=== PATIENT | female | born 1945 | race Caucasian/White ===

== ENCOUNTER 2019-01-03 13:33 | Inpatient (IN) | payer MEDICARE, OTHER ==
[~2019-01-03] VITALS: Ht 165.1 cm; Wt 117.9 kg
[~2019-01-03 13:33] MED LIST: AMIODARONE HCL200 MG ORAL; CLINDAMYCIN HC150 MG ORAL; CLOTRIMAZOLE15 GM TOPIC; INDOCIN25 MG ORAL; LIVALO2 MG PO; METOPROLOL SUCC50 MG ORAL; NORCO 5-325 TA1 EACH ORAL; OMEPRAZOLE40 M1 ORAL; SENSIPAR30 MG ORAL; TORSEMIDE20 MG ORAL; TRAMADOL HCL50 MG ORAL; TRULICITY1.5 MG/0.5 SQ; [UNRECOGNIZED DRUG - OTHER] PO
[2019-01-03 13:34] VITALS: BP 135/71
--- NOTE | 2019-01-03 13:34 | NUR ---
ED Nurse Note: Pt brought in by ambulance due to left side CP that radiates to her back started 1245 noon. Per daughter, they were having lunch when it started. Denies SOB or dizziness. Pt is AAO x4, follows commands. Noted Pleurx with dressing on right lateral abdomen.
--- NOTE | 2019-01-03 13:35 | NUR ---
ED Nurse Note: EMS gave NTG 1.2 spray en route.
[2019-01-03] MEDS ORDERED: Morphine Sulfate 4mg/ml Inj (IV USE ONLY) IVP ONE ×2 (14:00→15:30)
--- NOTE | 2019-01-03 14:08 | NUR ---
ED Nurse Note: Blood collected and sent.
--- NOTE | 2019-01-03 14:33 | NUR ---
ED Nurse Note: Water provided to patient. Dr Noelle pimentel.
[2019-01-03 14:38] LABS: BASOPHILS % (AUTO) 0.7 % (0.0-2.0); EOSINOPHILS % (AUTO) 1.1 % (0.0-3.0); HEMATOCRIT 35.6 % (37.0-47.0); HEMOGLOBIN 11.3 G/DL (12.0-16.0); LYMPHOCYTES % (AUTO) 18.5 % (20.0-45.0); MEAN CORPUSCULAR VOLUME 92 FL (80-99); MONOCYTES % (AUTO) 6.2 % (1.0-10.0); NEUTROPHILS % (AUTO) 73.6 % (45.0-75.0); PLATELET COUNT 168 K/UL (150-450); RED BLOOD COUNT 3.89 M/UL (4.20-5.40); RED CELL DISTRIBUTION WIDTH 17.3 % (11.6-14.8); WHITE BLOOD COUNT 14.3 K/UL (4.8-10.8)
[2019-01-03 15:08] LABS: ANION GAP 8 mmol/L (5-15); BLOOD UREA NITROGEN 35 mg/dL (7-18); CALCIUM 8.9 MG/DL (8.5-10.1); CARBON DIOXIDE 29 MMOL/L (21-32); CHLORIDE 106 MMOL/L (98-107); CREATININE 1.6 MG/DL (0.55-1.30); POTASSIUM 4.4 MMOL/L (3.5-5.1); SODIUM 142 MMOL/L (136-145)
--- NOTE | 2019-01-03 15:20 | NUR ---
ED Nurse Note: Dr Noelle monterroso not to collect the urine sample.
[2019-01-03 15:23] LABS: ALANINE AMINOTRANSFERASE 16 U/L (12-78); ALBUMIN 2.1 G/DL (3.4-5.0); ALBUMIN/GLOBULIN RATIO 0.4 (1.0-2.7); ALKALINE PHOSPHATASE 68 U/L (46-116); ASPARTATE AMINO TRANSFERASE 32 U/L (15-37); BILIRUBIN,TOTAL 0.3 MG/DL (0.2-1.0); CKMB 1.8 NG/ML (0.0-3.6); CREATINE KINASE 45 U/L (26-308)
[2019-01-03 15:30] VITALS: BP 149/82
[2019-01-03 17:00] VITALS: BP 142/80
--- NOTE | 2019-01-03 17:19 | NUR ---
ED Nurse Note: Called Patricio from the lab for blood draw of transferrin.
--- NOTE | 2019-01-03 17:38 | NUR ---
ED Nurse Note: Transferrin blood specimen sent.
--- NOTE | 2019-01-03 17:40 | NUR ---
ED Nurse Note: Tried to give report to telemetry unit. Receiving RN Qamar unable to get report at this time. ER charge nurse notified.
[2019-01-03] MEDS ORDERED: Miralax 17gm pkt ORAL PRN (18:00)
[2019-01-03] MEDS ORDERED: Albuterol/Ipratropium 3ml neb HHN PRN (18:00)
[2019-01-03] MEDS ORDERED: Nitroglycerin Subl 0.4mg tab SL PRN (18:00)
[2019-01-03] MEDS ORDERED: Metoprolol 5mg/5ml Inj IVP PRN (18:00)
[2019-01-03] MEDS ORDERED: dilTIAZem HCl 25mg/5ml Inj IV PRN (18:00)
[2019-01-03] MEDS ORDERED: Ketorolac 30mg Inj IV PRN (18:00)
[2019-01-03] MEDS ORDERED: Morphine Sulfate 2mg/ml Inj(IV/IM USE ONLY) IVP PRN (18:00)
--- NOTE | 2019-01-03 18:13 | NUR ---
ED Nurse Note: Report given to Qamar ALLRED of telemetry unit.
--- NOTE | 2019-01-03 18:15 | NUR ---
ADMITTING NOTES: Pt was admitted from ED, IV site RT F 22 locked, Pt has a history of AFIB, CHG, DM, COPD, and stage 4 lung CA, bilateral lower legs are red and edematous and daughter states its not cellulitus, RT side Pleurx Drain for lung fluid drainage usually done at [facility] per daughter, Pt Ox4 czech and djiboutian speaking, pt reports pain level of 6 out of 10, Ge placed orders and Md Metcalf on consult, Stat order for Venous Duplex and PT and Ptt for heparin drip, Vitals WNL,
--- NOTE | 2019-01-03 18:25 | Diagnostic Imaging Report ---
Indication: Chest Technique: One view of the chest Comparison: none Findings: The heart is enlarged. There is bilateral interstitial edema. There are likely bilateral pleural effusions, (right. Impression: Cardiomegaly, with pulmonary interstitial edema and likely bilateral pleural effusions
--- NOTE | 2019-01-03 18:46 | NUR ---
CASE MANAGEMENT: INITIAL REVIEW 01/03/2019 73 YO F PRESENTED TO OUR ED FROM HOME CC: CONNOR PMHx: CHF SI:ACS. T 98.2 HR 67 RR 22 B/P 135/71 SATS 99% ON RA WBC 14.3 BUN 35 CR 1.6 BNP 2399 IS: MORPHINE IV X1 PATIENT ADMITTED TO TELE 01/03/2019 @ 8222 DCP: PATIENT TO BE DISCHARGED TO HOME ONCE MEDICALLY CLEARED. PLAN OF CARE: 2D ECHO Addendum: 01/03/19 at 2031 by Jenn Hitchcock CM INTERQUAL MET
--- NOTE | 2019-01-03 19:08 | Cardiology Progress Note ---
Assessment/Plan Assessment/Plan [id number] pleuritic chest pin lung can diastilic failure renal insuf mri at [facility] of brain12/25 normal was not able to perform v/q at [facility] recently cctpa may be too risky for contras nephropathy recommend venous duplex not sure if the low dose of eliquis will be effective in a pt of this size for stroke prevention and much less sure about effective ness for dvt pe treatment check duplex check echo for pericardial effusion may need UF heparin Objective Last 24 Hour Vital Signs Date Time Temp Pulse Resp B/P (MAP) Pulse Ox O2 Delivery O2 Flow Rate FiO2 01/03/19 18:15 98.8 76 20 136/75 98 Nasal Cannula 2.0 01/03/19 17:00 97.9 79 18 142/80 99 Nasal Cannula 2.0 01/03/19 15:30 98.5 85 22 149/82 95 Nasal Cannula 2.0 01/03/19 14:34 98.5 01/03/19 14:34 98.5 01/03/19 13:34 98.2 79 25 135/71 95 Nasal Cannula 2.0 01/03/19 13:34 79 25 Nasal Cannula 2.0 01/03/19 13:24 98.2 67 22 135/71 99 Room Air Laboratory Tests Test 01/03/19 13:35 01/03/19 17:35 01/03/19 17:55 White Blood Count 14.3 K/UL (4.8-10.8) H Red Blood Count 3.89 M/UL (4.20-5.40) L Hemoglobin 11.3 G/DL (12.0-16.0) L Hematocrit 35.6 % (37.0-47.0) L Mean Corpuscular Volume 92 FL (80-99) Mean Corpuscular Hemoglobin 29.0 PG (27.0-31.0) Mean Corpuscular Hemoglobin Concent 31.7 G/DL (32.0-36.0) L Red Cell Distribution Width 17.3 % (11.6-14.8) H Platelet Count 168 K/UL (150-450) Mean Platelet Volume 9.9 FL (6.5-10.1) Neutrophils (%) (Auto) 73.6 % (45.0-75.0) Lymphocytes (%) (Auto) 18.5 % (20.0-45.0) L Monocytes (%) (Auto) 6.2 % (1.0-10.0) Eosinophils (%) (Auto) 1.1 % (0.0-3.0) Basophils (%) (Auto) 0.7 % (0.0-2.0) Sodium Level 142 MMOL/L (136-145) Potassium Level 4.4 MMOL/L (3.5-5.1) Chloride Level 106 MMOL/L (98-107) Carbon Dioxide Level 29 MMOL/L (21-32) Anion Gap 8 mmol/L (5-15) Blood Urea Nitrogen 35 mg/dL (7-18) H Creatinine 1.6 MG/DL (0.55-1.30) H Estimat Glomerular Filtration Rate mL/min (>60) Glucose Level 123 MG/DL (74-106) H Lactic Acid Level 1.80 mmol/L (0.4-2.0) Calcium Level 8.9 MG/DL (8.5-10.1) Total Bilirubin 0.3 MG/DL (0.2-1.0) Aspartate Amino Transf (AST/SGOT) 32 U/L (15-37) Alanine Aminotransferase (ALT/SGPT) 16 U/L (12-78) Alkaline Phosphatase 68 U/L (46-116) Total Creatine Kinase 45 U/L (26-308) Creatine Kinase MB 1.8 NG/ML (0.0-3.6) Creatine Kinase MB Relative Index 4.0 Troponin I 0.000 ng/mL (0.000-0.056) Pending Pro-B-Type Natriuretic Peptide 2399 pg/mL (0-125) H Total Protein 6.8 G/DL (6.4-8.2) Albumin 2.1 G/DL (3.4-5.0) L Globulin 4.7 g/dL Albumin/Globulin Ratio 0.4 (1.0-2.7) L Lipase 213 U/L (73-393) Transferrin Pending Bon Metcalf MD Jan 03, 2019 19:08
[2019-01-03] MEDS ORDERED: Heparin 5000 units/ml inj IV ONE (19:15)
--- NOTE | 2019-01-03 19:36 | Emergency Room Report ---
History of Present Illness General Chief Complaint: Chest Pain Source: Patient, Family Member Present Illness HPI 73-year-old female presents ED for evaluation. Brought in by EMS complaining of chest pain. Started today just prior to arrival. Sudden onset. Left-sided , 7 out of 10, sharp, radiating to the back. Patient states that she had thoracentesis performed today from the right lung at [facility]. Has pigtail catheter in place. History of stage IV lung cancer. Was given aspirin and nitroglycerin by EMS without significant relief. No other aggravating relieving factors. Denies any other associated symptoms Allergies: Coded Allergies: No Known Allergies (Unverified , 04/26/14) Patient History Past Medical History: DM, HTN, COPD Past Surgical History: none Pertinent Family History: none Social History: Denies: smoking, alcohol use, drug use Last Menstrual Period: n/a Now: No Immunizations: UTD Reviewed Nursing Documentation: PMH: Agreed; PSxH: Agreed Nursing Documentation-PMH Hx Hypertension: Yes Hx COPD: Yes Hx Diabetes: Yes Review of Systems All Other Systems: negative except mentioned in HPI Physical Exam Vital Signs Date Time Temp Pulse Resp B/P (MAP) Pulse Ox O2 Delivery O2 Flow Rate FiO2 01/03/19 13:24 98.2 67 22 135/71 99 Room Air 01/03/19 13:34 2.0 Sp02 EP Interpretation: reviewed, normal General Appearance: no apparent distress, alert, GCS 15, non-toxic, obese Head: normocephalic, atraumatic Eyes: bilateral eye normal inspection, bilateral eye PERRL ENT: hearing grossly normal, normal pharynx, no angioedema, normal voice Neck: full range of motion, supple/symm/no masses Respiratory: chest non-tender, lungs clear, normal breath sounds, speaking full sentences Cardiovascular #1: regular rate, rhythm, no edema Cardiovascular #2: 2+ carotid (R), 2+ carotid (L), 2+ radial (R), 2+ radial (L) , 2+ dorsalis pedis (R), 2+ dorsalis pedis (L) Gastrointestinal: normal bowel sounds, non tender, soft, non-distended, no guarding, no rebound Rectal: deferred Genitourinary: normal inspection, no CVA tenderness Musculoskeletal: back normal, gait/station normal, normal range of motion, non- tender Neurologic: alert, oriented x3, responsive, motor strength/tone normal, sensory intact, speech normal Psychiatric: judgement/insight normal, memory normal, mood/affect normal, no suicidal/homicidal ideation Reflexes: 3+ bicep (R), 3+ bicep (L), 3+ tricep (R), 3+ tricep (L), 3+ knee (R) , 3+ knee (L) Skin: normal color, no rash, warm/dry, well hydrated Lymphatic: no adenopathy Medical Decision Making Diagnostic Impression: Primary Impression: acute coronary syndrome ER Course Hospital Course 73-year-old female presents ED complaining of left-sided chest pain Differential diagnoses include: MS/unstable angina, contusion, muscle strain, PTX, rib fracture Clinical course Patient placed on stretcher. on playground monitor. After initial history and physical I ordered labs, EKG, chest x-ray, morphine labs reviewed- no leukocytosis, hb/hct stable, electrolytes ok, BNP elevated, trop negative EKG - afib, no acute ischemic changes interpreted by me Chest x-ray- cardiomegaly, bilateral effusions Case discussed with Dr. Carolina (requested by Dr Huston) and he agreed to accept the patient to his service for further care and support I. I feel this is a highly complex case requiring extensive working including EKG/Rhythm strip, Xray/CT/US, Blood/urine lab work, repeat exams while in ED, and administration of strong opiates/narcotics for pain control, admission to hospital or close patient follow up. Diagnosis - ACS admitted to telemetry in serious condition Labs Test 01/03/19 13:35 01/03/19 17:35 01/03/19 17:55 White Blood Count 14.3 K/UL (4.8-10.8) Red Blood Count 3.89 M/UL (4.20-5.40) Hemoglobin 11.3 G/DL (12.0-16.0) Hematocrit 35.6 % (37.0-47.0) Mean Corpuscular Volume 92 FL (80-99) Mean Corpuscular Hemoglobin 29.0 PG (27.0-31.0) Mean Corpuscular Hemoglobin Concent 31.7 G/DL (32.0-36.0) Red Cell Distribution Width 17.3 % (11.6-14.8) Platelet Count 168 K/UL (150-450) Mean Platelet Volume 9.9 FL (6.5-10.1) Neutrophils (%) (Auto) 73.6 % (45.0-75.0) Lymphocytes (%) (Auto) 18.5 % (20.0-45.0) Monocytes (%) (Auto) 6.2 % (1.0-10.0) Eosinophils (%) (Auto) 1.1 % (0.0-3.0) Basophils (%) (Auto) 0.7 % (0.0-2.0) Sodium Level 142 MMOL/L (136-145) Potassium Level 4.4 MMOL/L (3.5-5.1) Chloride Level 106 MMOL/L (98-107) Carbon Dioxide Level 29 MMOL/L (21-32) Anion Gap 8 mmol/L (5-15) Blood Urea Nitrogen 35 mg/dL (7-18) Creatinine 1.6 MG/DL (0.55-1.30) Estimat Glomerular Filtration Rate mL/min (>60) Glucose Level 123 MG/DL (74-106) Lactic Acid Level 1.80 mmol/L (0.4-2.0) Calcium Level 8.9 MG/DL (8.5-10.1) Total Bilirubin 0.3 MG/DL (0.2-1.0) Aspartate Amino Transf (AST/SGOT) 32 U/L (15-37) Alanine Aminotransferase (ALT/SGPT) 16 U/L (12-78) Alkaline Phosphatase 68 U/L (46-116) Total Creatine Kinase 45 U/L (26-308) Creatine Kinase MB 1.8 NG/ML (0.0-3.6) Creatine Kinase MB Relative Index 4.0 Troponin I 0.000 ng/mL (0.000-0.056) 0.001 ng/mL (0.000-0.056) Pro-B-Type Natriuretic Peptide 2399 pg/mL (0-125) Total Protein 6.8 G/DL (6.4-8.2) Albumin 2.1 G/DL (3.4-5.0) Globulin 4.7 g/dL Albumin/Globulin Ratio 0.4 (1.0-2.7) Lipase 213 U/L (73-393) EKG Diagnostic Results Rate: normal Rhythm: other - afib ST Segments: no acute changes ASA given to the pt in ED: No - given by ems Rhythm Strip Diag. Results EP Interpretation: yes Rhythm: no PVC's, no ectopy Chest X-Ray Diagnostic Results Chest X-Ray Diagnostic Results : Chest X-Ray Ordered: Yes # of Views/Limited/Complete: 1 View Indication: Chest Pain EP Interpretation: Yes Interpretation: no pneumothorax, other - cardiomegaly, interstitial edema, pleural effusion Impression: Other - pleural effusion, cardiomegaly Electronically Signed by: Electronically signed by Luís Drake MD Last Vital Signs Date Time Temp Pulse Resp B/P (MAP) Pulse Ox O2 Delivery O2 Flow Rate FiO2 01/03/19 18:15 98.8 76 20 136/75 98 Nasal Cannula 2.0 Status: improved Disposition: ADMITTED INPATIENT Condition: Serious Referrals: JOSE HUSTON (PCP) Luís Drake MD Jan 03, 2019 19:36
[2019-01-03 20:00] VITALS: BP 104/70
[2019-01-03] MEDS ORDERED: Heparin 5000 units/ml inj IV SCH ×2 (20:00→23:30)
[2019-01-03] MEDS ORDERED: Heparin 25,000u/D5W 500ml 500 ML IV SCH (20:00)
--- NOTE | 2019-01-03 20:26 | NUR ---
HAND-OFF: Report given to Tasha Sadler.
[2019-01-03] MEDS: Amiodarone 200mg tab ORAL SCH (21:43)
[2019-01-03 22:06] LABS: HEMATOCRIT 33.8 % (37.0-47.0); HEMOGLOBIN 10.7 G/DL (12.0-16.0); MEAN CORPUSCULAR VOLUME 91 FL (80-99); PLATELET COUNT 153 K/UL (150-450); RED CELL DISTRIBUTION WIDTH 17.6 % (11.6-14.8); WHITE BLOOD COUNT 19.6 K/UL (4.8-10.8)
--- NOTE | 2019-01-03 22:14 | NUR ---
NURSE NOTES: Unable to give heparin until stat PTT blood drawn. PTT just drawn. Awaiting results. Will notify Dr. Metcalf that pt is currently having Afib with RVR after amiodarone given. Will continue to monitor.
--- NOTE | 2019-01-03 23:06 | NUR ---
NURSE NOTES: Called and left a message with Dr. Carolina regarding pts Bipap at night with settings 09/18. Awaiting call back.
[2019-01-04] VITALS: BP 109/70
--- NOTE | 2019-01-04 02:45 | Consultation ---
DATE OF CONSULTATION: 01/03/2019 CONSULTING PHYSICIAN: Bon Metcalf M.D. REFERRING PHYSICIAN: Urvashi Carolina M.D. REASON FOR REFERRAL: Chest pain. HISTORY OF PRESENT ILLNESS: This is a very unfortunate 73-year-old female who is usually followed at [facility] by Dr. Potter, her primary care physician, recently discharged from [facility] where she had been diagnosed with widely metastatic lung cancer, had a PleurX catheter placed for drainage of the right pleural effusion. As fluid was drained, she developed some pain in the left side of the chest that is radiating to the back. Pain gets worse when she takes a deep breath and she has to take shallow respirations. This is the pain that she has never had before and describes as sensation and pressure in nature. She does seem to think that it is better when she is sitting down and worse when she is lying down. She has shortness of breath chronically, on home oxygen. She has occasional shortness of breath that worsens at night and requires oxygen treatment to be used at night more so than usual. She does have occasional palpitation and occasional dizziness. She kept about moving around the house and to the bathroom apparently at home although she needs help to do that. PAST MEDICAL HISTORY: 1. Positive for history of atrial fibrillation with rapid ventricular response. She was recently started on amiodarone therapy and the dose was decreased. She has had history of pleural effusion that is recurrent on the right side and subsequently has undergone PleurX catheter placement. She has acute on chronic congestive heart failure with diastolic in nature. 2. Adenocarcinoma of the lung with wide metastatic disease. 3. Acute renal failure on chronic kidney disease, status post staghorn calculus. 4. Lymphedema. 5. Anemia of chronic disease and chemotherapy. 6. Sinus bradycardia. 7. Morbid obesity. 8. Obstructive sleep apnea. 9. Systemic hypertension. 10. Hyperlipidemia. 11. She has history of GI bleed. She has history of metastatic disease to the bone and has leg edema, asthma, COPD, hyperparathyroidism, hypocalcemia, brain metastases, and malignant pleural effusion. Previously, ejection fraction has been normal and normal wall motion with no ST and T-wave abnormalities. She has been treated with anticoagulation with apixaban. ALLERGIES: She denies any allergies to medications. SOCIAL HISTORY: She used to smoke many years ago although she has not done so recently. 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 REVIEW OF SYSTEMS: GASTROINTESTINAL: She denies any nausea or vomiting. She has some constipation. GENITOURINARY: She denies. PULMONARY: Positive for coughing. No phlegm. CONSTITUTIONAL: No fevers, chills, or night sweats. PHYSICAL EXAMINATION: GENERAL: Shows to be morbidly obese elderly female, in no respiratory distress. NECK: Supple. No jugular venous distention. LUNGS: There are decreased breath sounds noted at the right base. CARDIAC: Irregularly irregular, not tachycardic, not bradycardic. No heaves or thrills noted. ABDOMEN: Soft, obese. Positive bowel sounds. EXTREMITIES: Positive edema and erythema on both lower extremities bilaterally. NEUROLOGIC: She is awake, alert, and responsive. LABORATORY VALUES: Chest x-ray shows cardiomegaly, pulmonary interstitial edema, likely bilateral pleural effusions the heart being enlarged. Blood tests, sodium 142, potassium 4.4, chloride 106, bicarbonate 29, BUN of 35, creatinine 1.6, glucose of 123, lactic acid of 1.8. Troponin of zero. ProBNP of 2400. Albumin of 2.1. Lipase of 213. EKG shows atrial fibrillation, no ST or T-wave abnormalities. ASSESSMENT AND PLAN: 1. Pleuritic chest pain. 2. History of hypertension. 3. History of hypertensive heart disease. 4. History of metastatic disease to the brain and bone per [facility] records. 5. History of diastolic dysfunction. 6. History of obstructive sleep apnea. 7. History of renal insufficiency. 8. Pleural effusion. 9. Bilateral edema. 10. COPD/asthma. 11. Hyperparathyroidism. This patient was seen in cardiac consultation. The patient's chest pain in the setting of cancer is concerning for several possible etiologies; pleural effusion, musculoskeletal, pulmonary embolism, or pericardial effusion. She is on anticoagulation although low dose of anticoagulation. I am not sure for her degree of obesity whether Eliquis is providing adequate coverage. Nevertheless, she should have a venous duplex study of her lower extremities. Consideration for other possible evaluations will be left to Dr. Carolina whether the patient should undergo V/Q scan, which may likely be abnormal just because of her lung cancer versus CT coronary angiogram, which may pose a risk of contrast nephropathy. Her medications otherwise should be continued. We will consider treatment for anticoagulation for heparin. I had been able to evaluate [facility] records. She has had an MRI of her brain that was normal without contrast just recently as 3 or 4 days ago. An attempt at V/Q scan at [facility] looks like it was unsuccessful as the patient was not able to follow through with the recommendations. An echocardiogram done a week ago shows ejection fraction of 59%. There was a small pericardial effusion at that time on that echo report and study will be repeated. CT scan of the chest without contrast has been performed recently showing a large right-sided pleural effusion. In the interim, the patient should have venous duplex studies to see if there is any evidence of DVT. Anticoagulation with the use of unfractionated heparin may be indicated until further evaluation is performed. Bon Metcalf M.D. DR: Lucina JOB#: [id number] CC:
[2019-01-04 04:00] VITALS: BP 114/63
--- NOTE | 2019-01-04 04:00 | NUR ---
RESPIRATORY THERAPY Received patient trached with cuffed shiley 6, cuff deflated. Transition Teacher balloon was cut off upon checking. Suction patient with no complication. Trach care done.
[2019-01-04 05:46] LABS: BASOPHILS % (AUTO) 0.7 % (0.0-2.0); EOSINOPHILS % (AUTO) 0.4 % (0.0-3.0); HEMATOCRIT 33.4 % (37.0-47.0); HEMOGLOBIN 10.7 G/DL (12.0-16.0); LYMPHOCYTES % (AUTO) 11.6 % (20.0-45.0); MEAN CORPUSCULAR VOLUME 92 FL (80-99); NEUTROPHILS % (AUTO) 81.3 % (45.0-75.0); PLATELET COUNT 134 K/UL (150-450); RED BLOOD COUNT 3.65 M/UL (4.20-5.40); RED CELL DISTRIBUTION WIDTH 17.4 % (11.6-14.8); WHITE BLOOD COUNT 15.7 K/UL (4.8-10.8)
[2019-01-04 06:09] LABS: INR 1.1 (0.9-1.1)
[2019-01-04 06:12] LABS: PARTIAL THROMBOPLASTIN TIME > 150 SEC (23-33)
--- NOTE | 2019-01-04 06:20 | NUR ---
NURSE NOTES: Stopped heparin per protocol and notified Dr. Metcalf. Will continue to monitor.
[2019-01-04 06:21] LABS: CHOLESTEROL 208 MG/DL (< 200); HDL CHOLESTEROL 76 MG/DL (40-60); TRIGLYCERIDES 53 MG/DL (30-150)
--- NOTE | 2019-01-04 07:59 | NUR ---
HAND-OFF: Report given to BRIGIDA Kern.
[2019-01-04 08:00] VITALS: BP 105/86
--- NOTE | 2019-01-04 08:00 | NUR ---
NURSE NOTES: Pt received from BRIGIDA Cordova alert and oriented x4 with no s/s of acute distress. IV sites asymptomatic and patent, running to Heparin drip. On 2L NC, saturating at 96% with no s/s of SOB or acute distress. Bed in lowest position, call light and belongings within reach.
[2019-01-04] MEDS: Heparin 25,000u/D5W 500ml 500 ML IV SCH ×3 (08:08→15:28)
[2019-01-04] MEDS: Sensipar 30mg Tab ORAL SCH (08:58)
[2019-01-04] MEDS: Amiodarone 200mg tab ORAL SCH ×2 (08:58→20:51)
[2019-01-04] MEDS ORDERED: Metoprolol Succinate XL 50mg tab ORAL SCH (09:00)
--- NOTE | 2019-01-04 10:37 | History and Physical ---
History of Present Illness General Date patient seen: Jan 04, 2019 Reason for Hospitalization: Chest Pain Present Illness HPI 73 year old female with hx of metastatic lung cancer, with recurrent right sided malignant pleural effusion, DM, SOURAV, presented to the emergency department today complaining of shooting chest pain. Patient states that this has been going on for last 2-3 days. She has tried different pain medications without improvement. Denies any other injuries. No other complaints are noted. Allergies: Coded Allergies: No Known Allergies (Unverified , 04/26/14) Medication History Scheduled Amiodarone Hcl* (Cordarone*), 200 MG ORAL EVERY 12 HOURS, (Reported) Cinacalcet* (Sensipar*), 30 MG ORAL DAILY, (Reported) Clindamycin Hcl* (Clindamycin Hcl*), 150 MG ORAL FOUR TIMES A DAY Clotrimazole* (Lotrimin*), 1 APPLIC TOPIC TWICE A DAY Indomethacin (Indomethacin), 25 MG ORAL Q8H Metoprolol Succinate* (Metoprolol Succinate*), 50 MG ORAL DAILY, (Reported) Omeprazole (Omeprazole), 40 MG ORAL DAILY, (Reported) Torsemide* (Demadex*), 20 MG ORAL DAILY, (Reported) Scheduled PRN Hydrocodone Bit/Acetaminophen 5-325* ([place] 5-325*), 1 TAB ORAL Q6H PRN for For Pain Tramadol Hcl* (Ultram*), 50 MG ORAL Q6H PRN for For Pain, (Reported) Miscellaneous Medications Dulaglutide (Trulicity), 1.5 MG SQ, (Reported) Lorlatinib (Lorbrena), 100 MG PO, (Reported) Pitavastatin Calcium (Livalo), 2 MG PO, (Reported) Patient History Healthcare decision maker daughter wisam Resuscitation status Full Code Advanced Directive on File Past Medical/Surgical History Past Medical/Surgical History: (1) Diabetes mellitus (2) Malignant pleural effusion (3) Atrial fibrillation (4) Morbid obesity (5) SOURAV (obstructive sleep apnea) Review of Systems Cardiovascular: Reports: chest pain All Other Systems: negative except mentioned in HPI Physical Exam General Appearance: morbidly obese Lines, tubes and drains: peripheral HEENT: normocephalic, atraumatic Neck: non-tender, supple Respiratory/Chest: chest wall non-tender, lungs clear Cardiovascular/Chest: normal peripheral pulses Abdomen: normal bowel sounds Last 24 Hour Vital Signs Date Time Temp Pulse Resp B/P (MAP) Pulse Ox O2 Delivery O2 Flow Rate FiO2 01/04/19 08:00 99.4 94 19 105/86 (92) 01/04/19 08:00 2.0 01/04/19 05:48 97 22 95 01/04/19 04:00 110 01/04/19 04:00 2.0 01/04/19 04:00 97.5 83 16 114/63 (80) 01/04/19 03:24 103 27 97 Full Face 30 01/04/19 01:30 94 25 97 Full Face 30 01/04/19 00:00 95 29 Bi-pap 30 01/04/19 00:00 118 01/04/19 00:00 95 29 97 Full Face 30 01/04/19 00:00 2.0 01/04/19 00:00 99.8 114 19 109/70 (83) 98 01/03/19 22:55 Nasal Cannula 2.0 01/03/19 20:00 99.6 116 17 104/70 (81) 96 01/03/19 18:15 98.8 76 20 136/75 98 Nasal Cannula 2.0 01/03/19 17:00 97.9 79 18 142/80 99 Nasal Cannula 2.0 01/03/19 15:30 98.5 85 22 149/82 95 Nasal Cannula 2.0 01/03/19 14:34 98.5 01/03/19 14:34 98.5 01/03/19 13:34 98.2 79 25 135/71 95 Nasal Cannula 2.0 01/03/19 13:34 79 25 Nasal Cannula 2.0 01/03/19 13:24 98.2 67 22 135/71 99 Room Air Intake and Output 01/03/19 01/04/19 19:00 07:00 Intake Total 200 ml Balance 200 ml Intake Oral 200 ml # Voids 3 Laboratory Tests Test 01/03/19 13:35 01/03/19 17:35 01/03/19 17:55 01/03/19 22:00 White Blood Count 14.3 K/UL (4.8-10.8) H 19.6 K/UL (4.8-10.8) H Red Blood Count 3.89 M/UL (4.20-5.40) L 3.70 M/UL (4.20-5.40) L Hemoglobin 11.3 G/DL (12.0-16.0) L 10.7 G/DL (12.0-16.0) L Hematocrit 35.6 % (37.0-47.0) L 33.8 % (37.0-47.0) L Mean Corpuscular Volume 92 FL (80-99) 91 FL (80-99) Mean Corpuscular Hemoglobin 29.0 PG (27.0-31.0) 28.9 PG (27.0-31.0) Mean Corpuscular Hemoglobin Concent 31.7 G/DL (32.0-36.0) L 31.6 G/DL (32.0-36.0) L Red Cell Distribution Width 17.3 % (11.6-14.8) H 17.6 % (11.6-14.8) H Platelet Count 168 K/UL (150-450) 153 K/UL (150-450) Mean Platelet Volume 9.9 FL (6.5-10.1) 9.1 FL (6.5-10.1) Neutrophils (%) (Auto) 73.6 % (45.0-75.0) % (45.0-75.0) Lymphocytes (%) (Auto) 18.5 % (20.0-45.0) L % (20.0-45.0) Monocytes (%) (Auto) 6.2 % (1.0-10.0) % (1.0-10.0) Eosinophils (%) (Auto) 1.1 % (0.0-3.0) % (0.0-3.0) Basophils (%) (Auto) 0.7 % (0.0-2.0) % (0.0-2.0) Sodium Level 142 MMOL/L (136-145) Potassium Level 4.4 MMOL/L (3.5-5.1) Chloride Level 106 MMOL/L (98-107) Carbon Dioxide Level 29 MMOL/L (21-32) Anion Gap 8 mmol/L (5-15) Blood Urea Nitrogen 35 mg/dL (7-18) H Creatinine 1.6 MG/DL (0.55-1.30) H Estimat Glomerular Filtration Rate mL/min (>60) Glucose Level 123 MG/DL (74-106) H Lactic Acid Level 1.80 mmol/L (0.4-2.0) Calcium Level 8.9 MG/DL (8.5-10.1) Total Bilirubin 0.3 MG/DL (0.2-1.0) Aspartate Amino Transf (AST/SGOT) 32 U/L (15-37) Alanine Aminotransferase (ALT/SGPT) 16 U/L (12-78) Alkaline Phosphatase 68 U/L (46-116) Total Creatine Kinase 45 U/L (26-308) Creatine Kinase MB 1.8 NG/ML (0.0-3.6) Creatine Kinase MB Relative Index 4.0 Troponin I 0.000 ng/mL (0.000-0.056) 0.001 ng/mL (0.000-0.056) Pro-B-Type Natriuretic Peptide 2399 pg/mL (0-125) H Total Protein 6.8 G/DL (6.4-8.2) Albumin 2.1 G/DL (3.4-5.0) L Globulin 4.7 g/dL Albumin/Globulin Ratio 0.4 (1.0-2.7) L Lipase 213 U/L (73-393) Transferrin 136 mg/dL (200-370) L Activated Partial Thromboplast Time 25 SEC (23-33) Test 01/04/19 05:00 White Blood Count 15.7 K/UL (4.8-10.8) H Red Blood Count 3.65 M/UL (4.20-5.40) L Hemoglobin 10.7 G/DL (12.0-16.0) L Hematocrit 33.4 % (37.0-47.0) L Mean Corpuscular Volume 92 FL (80-99) Mean Corpuscular Hemoglobin 29.3 PG (27.0-31.0) Mean Corpuscular Hemoglobin Concent 31.9 G/DL (32.0-36.0) L Red Cell Distribution Width 17.4 % (11.6-14.8) H Platelet Count 134 K/UL (150-450) L Mean Platelet Volume 8.8 FL (6.5-10.1) Neutrophils (%) (Auto) 81.3 % (45.0-75.0) H Lymphocytes (%) (Auto) 11.6 % (20.0-45.0) L Monocytes (%) (Auto) 6.0 % (1.0-10.0) Eosinophils (%) (Auto) 0.4 % (0.0-3.0) Basophils (%) (Auto) 0.7 % (0.0-2.0) Prothrombin Time 11.1 SEC (9.30-11.50) Prothromb Time International Ratio 1.1 (0.9-1.1) Activated Partial Thromboplast Time > 150 SEC (23-33) *H Troponin I 0.017 ng/mL (0.000-0.056) C-Reactive Protein, Quantitative 12.2 mg/dL (0.00-0.90) H Triglycerides Level 53 MG/DL (30-150) Cholesterol Level 208 MG/DL (< 200) H LDL Cholesterol 121 mg/dL (<100) H HDL Cholesterol 76 MG/DL (40-60) H Cholesterol/HDL Ratio 2.7 (3.3-4.4) L Thyroid Stimulating Hormone (TSH) 3.267 uiU/mL (0.358-3.740) Height (Feet): 5 Height (Inches): 5.00 Weight (Pounds): 260 Medications Current Medications Medications (Trade) Dose Ordered Sig/Julio Cesar Route PRN Reason Start Time Stop Time Status Last Admin Dose Admin Acetaminophen (Tylenol) 650 mg Q4H PRN ORAL FEVER 01/03/19 18:00 02/02/19 17:59 Albuterol/ Ipratropium (Albuterol/ Ipratropium) 3 ml Q4H PRN HHN Shortness of Breath 01/03/19 18:00 01/08/19 17:59 Amiodarone HCl (Cordarone) 200 mg EVERY 12 HOURS ORAL 01/03/19 21:00 02/02/19 20:59 01/04/19 08:58 Cinacalcet (Sensipar) 30 mg DAILY ORAL 01/04/19 09:00 02/03/19 08:59 01/04/19 08:58 Diltiazem HCl (Cardizem) 10 mg EVERY HOUR PRN IV heart rate more than 120, 01/03/19 18:00 02/02/19 17:59 Heparin Sodium (Porcine) (Heparin 5000 units/ml) 5,000 units ONCE IV 01/03/19 23:30 02/02/19 23:29 01/03/19 23:40 Heparin Sodium/ Dextrose 500 ml @ 33.022 mls/ hr ADJUST PER PROTOCOL IV 01/04/19 09:30 02/02/19 19:59 01/04/19 08:08 Ketorolac Tromethamine (Toradol 30mg) 30 mg Q6H PRN IV moderate pain ( 4-6) 01/03/19 18:00 01/08/19 17:59 Metoprolol Succinate (Toprol XL) 50 mg DAILY ORAL 01/04/19 09:00 02/03/19 08:59 Metoprolol Tartrate (Lopressor) 5 mg EVERY HOUR PRN IVP heart rate more than 140 01/03/19 18:00 02/02/19 17:59 Morphine Sulfate (Morphine Sulfate) 2 mg Q4H PRN IVP severe Pain (Pain Scale 7-10) 01/03/19 18:00 01/10/19 17:59 01/03/19 22:13 Nitroglycerin (Ntg) 0.4 mg Q5M PRN SL Prn Chest Pain 01/03/19 18:00 02/02/19 17:59 Ondansetron HCl (Zofran) 4 mg Q6H PRN IVP Nausea & Vomiting 01/03/19 18:00 02/02/19 17:59 Pantoprazole (Protonix) 40 mg DAILY ORAL 01/04/19 09:00 02/03/19 08:59 01/04/19 08:58 Patient Own Medication (Patient's Own Med) 1 ea BEDTIME ORAL 01/04/19 21:00 02/03/19 20:59 Polyethylene Glycol (Miralax) 17 gm DAILYPRN PRN ORAL Constipation 01/03/19 18:00 02/02/19 17:59 Temazepam (Restoril) 15 mg HSPRN PRN ORAL Insomnia 01/03/19 18:00 01/10/19 17:59 Assessment/Plan Problem List: (1) ACS (acute coronary syndrome) ICD Codes: I24.9 - Acute ischemic heart disease, unspecified SNOMED: 761484761 (2) Cellulitis ICD Codes: L03.90 - Cellulitis, unspecified SNOMED: 984121352 (3) Atrial fibrillation ICD Codes: I48.91 - Unspecified atrial fibrillation SNOMED: 10493286 (4) Malignant pleural effusion ICD Codes: J91.0 - Malignant pleural effusion SNOMED: 32997343 (5) Diabetes mellitus ICD Codes: E11.9 - Type 2 diabetes mellitus without complications SNOMED: 85473191 (6) Morbid obesity ICD Codes: E66.01 - Morbid (severe) obesity due to excess calories SNOMED: 829798864 (7) SOURAV (obstructive sleep apnea) ICD Codes: G47.33 - Obstructive sleep apnea (adult) (pediatric) SNOMED: 54321391 Assessment/Plan check urine IV abx ID evaluation f/u renal parameters continue heparin drip use Methadone for pain f/u cardiology recommendations. Urvashi Carolina MD Jan 04, 2019 10:37
[2019-01-04 12:00] VITALS: BP 125/72
--- NOTE | 2019-01-04 14:30 | Cardiology Progress Note ---
Assessment/Plan Assessment/Plan 1. Pleuritic chest pain pericardail vs pleural related 2. History of hypertension. 3. History of hypertensive heart disease. 4. History of metastatic disease bone per [facility]. 5. History of diastolic dysfunction. 6. History of obstructive sleep apnea. 7. History of renal insufficiency. 8. Pleural effusion. 9. Bilateral edema. 10. COPD/asthma. 11. Hyperparathyroidism. 12. pleural effusion 13. pericardial effsuion mri at [facility]/25 normal was not able to perform v/q at [facility] recently cctpa may be too risky for contras nephropathy venous duplex performed i donot have results not sure if the low dose of eliquis will be effective in a pt of this size for stroke prevention and much less sure about effective ness for dvt pe treatment UF heparin but in light of pericardaail effusion i will stop if venous duplex is neg and put her back on the eliquis she was taking before echo cardiogram seem to show mod effusion no chamber collpase to suggest tamponad but ivc seems dilated she also has pelurial effusion both of which may cause pleeurtic cp is on heparin now some exper wheezes pt concerned about metoprolol use as has asthma hs will dc start on Cardizem cd effusion and need for surveillance d/w pt Subjective Cardiovascular: Reports: chest pain - much bettet Respiratory: Reports: shortness of breath Genitourinary: Denies: burning Subjective low energy not ablet ot eat to walk or do anything else Objective Last 24 Hour Vital Signs Date Time Temp Pulse Resp B/P (MAP) Pulse Ox O2 Delivery O2 Flow Rate FiO2 01/04/19 12:00 2.0 01/04/19 12:00 98.1 103 24 125/72 (89) 01/04/19 09:00 Nasal Cannula 2.0 01/04/19 08:00 99.4 94 19 105/86 (92) 01/04/19 08:00 2.0 01/04/19 08:00 92 01/04/19 05:48 97 22 95 01/04/19 04:00 110 01/04/19 04:00 2.0 01/04/19 04:00 97.5 83 16 114/63 (80) 01/04/19 03:24 103 27 97 Full Face 30 01/04/19 01:30 94 25 97 Full Face 30 01/04/19 00:00 95 29 Bi-pap 30 01/04/19 00:00 118 01/04/19 00:00 95 29 97 Full Face 30 01/04/19 00:00 2.0 01/04/19 00:00 99.8 114 19 109/70 (83) 98 01/03/19 22:55 Nasal Cannula 2.0 01/03/19 20:00 99.6 116 17 104/70 (81) 96 01/03/19 18:15 98.8 76 20 136/75 98 Nasal Cannula 2.0 01/03/19 17:00 97.9 79 18 142/80 99 Nasal Cannula 2.0 01/03/19 15:30 98.5 85 22 149/82 95 Nasal Cannula 2.0 01/03/19 14:34 98.5 01/03/19 14:34 98.5 General Appearance: no apparent distress, alert Neck: supple Cardiovascular: irregularly irregular Respiratory/Chest: expiratory wheezing - min Abdomen: normal bowel sounds, non tender, soft Extremities: no swelling Intake and Output 01/03/19 01/04/19 19:00 07:00 Intake Total 200 ml Balance 200 ml Intake Oral 200 ml # Voids 3 Laboratory Tests Test 01/03/19 17:35 01/03/19 17:55 01/03/19 22:00 01/04/19 05:00 Transferrin 136 mg/dL (200-370) L Troponin I 0.001 ng/mL (0.000-0.056) 0.017 ng/mL (0.000-0.056) White Blood Count 19.6 K/UL (4.8-10.8) H 15.7 K/UL (4.8-10.8) H Red Blood Count 3.70 M/UL (4.20-5.40) L 3.65 M/UL (4.20-5.40) L Hemoglobin 10.7 G/DL (12.0-16.0) L 10.7 G/DL (12.0-16.0) L Hematocrit 33.8 % (37.0-47.0) L 33.4 % (37.0-47.0) L Mean Corpuscular Volume 91 FL (80-99) 92 FL (80-99) Mean Corpuscular Hemoglobin 28.9 PG (27.0-31.0) 29.3 PG (27.0-31.0) Mean Corpuscular Hemoglobin Concent 31.6 G/DL (32.0-36.0) L 31.9 G/DL (32.0-36.0) L Red Cell Distribution Width 17.6 % (11.6-14.8) H 17.4 % (11.6-14.8) H Platelet Count 153 K/UL (150-450) 134 K/UL (150-450) L Mean Platelet Volume 9.1 FL (6.5-10.1) 8.8 FL (6.5-10.1) Neutrophils (%) (Auto) % (45.0-75.0) 81.3 % (45.0-75.0) H Lymphocytes (%) (Auto) % (20.0-45.0) 11.6 % (20.0-45.0) L Monocytes (%) (Auto) % (1.0-10.0) 6.0 % (1.0-10.0) Eosinophils (%) (Auto) % (0.0-3.0) 0.4 % (0.0-3.0) Basophils (%) (Auto) % (0.0-2.0) 0.7 % (0.0-2.0) Activated Partial Thromboplast Time 25 SEC (23-33) > 150 SEC (23-33) *H Prothrombin Time 11.1 SEC (9.30-11.50) Prothromb Time International Ratio 1.1 (0.9-1.1) C-Reactive Protein, Quantitative 12.2 mg/dL (0.00-0.90) H Triglycerides Level 53 MG/DL (30-150) Cholesterol Level 208 MG/DL (< 200) H LDL Cholesterol 121 mg/dL (<100) H HDL Cholesterol 76 MG/DL (40-60) H Cholesterol/HDL Ratio 2.7 (3.3-4.4) L Thyroid Stimulating Hormone (TSH) 3.267 uiU/mL (0.358-3.740) Bon Metcalf MD Jan 04, 2019 14:29
[2019-01-04] MEDS ORDERED: dilTIAZem HCl CD 120mg cap ORAL SCH (14:32)
--- NOTE | 2019-01-04 15:30 | NUR ---
NURSE NOTES: Received call from Arpita from pharmacy and informed of PTT of 77. Per protocol, continue same rate and dosage. Ordered PTT for 01/05 at 0400.
[2019-01-04 16:00] VITALS: BP 116/67
--- NOTE | 2019-01-04 19:15 | NUR ---
HAND-OFF: Report given to Allan Knight RN. No s/s of acute distress.
--- NOTE | 2019-01-04 19:16 | NUR ---
NURSE NOTES: Received pt from BRIGIDA Kern. Pt awake, alert, and talkative. Family at bedside. Both IV sites intact and patent. Still running Heparin at 14u/kg/hr. Bed in lowest position. Call light within reach. Will continue to monitor.
[2019-01-04 20:00] VITALS: BP 134/64
--- NOTE | 2019-01-04 20:08 | Cardiology Report ---
APPROVED REPORT EXAM: Two-dimensional and M-mode echocardiogram with Doppler and color Doppler. INDICATION LV FUNCTION M-Mode DIMENSIONS IVSd1.3 (0.7-1.1cm)Left Atrium (MM)3.2 (1.6-4.0cm) LVDd4.3 (3.5-5.6cm)Aortic Root3.5 (2.0-3.7cm) PWd0.9 (0.7-1.1cm)Aortic Cusp Exc.1.8 (1.5-2.0cm) IVSs1.1 cm LVDs2.9 (2.5-4.0cm) PWs1.0 cm Other Information Technically limited study due to body habitus. Normal left ventricular chamber size, systolic function and wall motion to extend visualized . Left ventricular ejection fraction estimated to be 55-60%. Mild left ventricular hypertrophy. Small to medium sized circumferential pericardial effusion with no evidence of pericardial tamponade. Small pleural effusion is seen. Mild left atrial enlargement. Right cardiac chamber sizes are within normal limits. Mild aortic valve sclerosis with adequate cusp excursion. Mildly thickened mitral valve leaflets with normal excursion. Mild mitral annulus and aortic root calcification. Pulmonic valve not well visualized. IVC dilated at 2.3 cm without physiologic collapse suggestive of increased RA pressure. A color flow and spectral Doppler study was performed and revealed: Trace aortic insufficiency. Left ventricular diastolic function can not determined due to arrhythmia . Trace mitral regurgitation. Trace tricuspid regurgitation. Tricuspid systolic velocities suggests peak right ventricular systolic pressure of 22mmHg.
[2019-01-04] MEDS ORDERED: [UNRECOGNIZED DRUG - OTHER] ORAL SCH (21:00)
--- NOTE | 2019-01-04 22:53 | NUR ---
NURSE NOTES: Called and left a message with Dr. Metcalf regarding pts request to continue the following home meds: - Ferrousul 325 - Calcium 2500 - Loratadine 10 mg - Montelukast 10mg - Telmisartan 80 - Uloric 80 - Vitamin D3 4000 He agreed. Will input order. Will continue to monitor.
[2019-01-05] VITALS: BP 139/76
[2019-01-05 04:00] VITALS: BP 133/60
[2019-01-05] MEDS: Heparin 25,000u/D5W 500ml 500 ML IV SCH (04:35)
[2019-01-05] MEDS ORDERED: Heparin 25,000u/D5W 500ml 500 ML IV SCH (05:15)
[2019-01-05] MEDS ORDERED: Heparin 5000 units/ml inj IV ONE (05:30)
[2019-01-05 06:36] LABS: ANION GAP 8 mmol/L (5-15); BLOOD UREA NITROGEN 49 mg/dL (7-18); CALCIUM 8.4 MG/DL (8.5-10.1); CARBON DIOXIDE 28 MMOL/L (21-32); CHLORIDE 103 MMOL/L (98-107); CREATININE 1.9 MG/DL (0.55-1.30); POTASSIUM 3.9 MMOL/L (3.5-5.1); SODIUM 139 MMOL/L (136-145)
--- NOTE | 2019-01-05 07:38 | NUR ---
HAND-OFF: Report given to BRIGIDA Kern. Pt stable.
--- NOTE | 2019-01-05 07:45 | NUR ---
NURSE NOTES: Pt received from Tasha Mcmahan RN alert and oriented x4 with no s/s of acute distress. IV site asymptomatic and patent, currently running to Heparin drip. On 2L NC, saturating at 95% with no s/s of acute SOB. Bed in lowest position, call light and belongings within reach.
[2019-01-05 08:00] VITALS: BP 125/65
[2019-01-05] MEDS ORDERED: Montelukast 10mg tablet ORAL SCH (09:00)
[2019-01-05] MEDS ORDERED: dilTIAZem HCl CD 120mg cap ORAL SCH (09:00)
[2019-01-05] MEDS ORDERED: Tums 500mg ORAL SCH (09:00)
[2019-01-05] MEDS ORDERED: Vitamin D 1000 IU Tab ORAL SCH (09:00)
[2019-01-05] MEDS ORDERED: Irbesartan 150mg tablet ORAL SCH (09:00)
[2019-01-05] MEDS: Sensipar 30mg Tab ORAL SCH (09:00)
[2019-01-05] MEDS: Amiodarone 200mg tab ORAL SCH ×2 (09:17→20:52)
--- NOTE | 2019-01-05 10:28 | Cardiology Progress Note ---
Assessment/Plan Assessment/Plan 1. Pleuritic chest pain pericardail vs pleural related 2. History of hypertension. 3. History of hypertensive heart disease. 4. History of metastatic disease bone per [facility]. 5. History of diastolic dysfunction. 6. History of obstructive sleep apnea. 7. History of renal insufficiency. 8. Pleural effusion. 9. Bilateral edema. 10. COPD/asthma. 11. Hyperparathyroidism. 12. pleural effusion 13. pericardial effsuion mri at [facility]12/25 normal was not able to perform v/q at [facility] recently cctpa may be too risky for contras nephropathy venous duplex performed i donot have results still 01/06 , rn will call dept not sure if the low dose of eliquis will be effective in a pt of this size for stroke prevention and much less sure about effective ness for dvt pe treatment sow was started on UF heparin while penidng result of venous duplex but in light of pericardaail effusion i will stop if venous duplex is neg and put her back on the eliquis she was taking before echo cardiogram seem to show mod effusion no chamber collpase to suggest tamponad but ivc seems dilated she also has pleural effusion both of which may cause pleuritic cp she was admitted with all trop neg is on heparin now restart on Cardizem cd and telmisartan effusion and need for surveillance d/w pt and dtr today they will see theri cards soon if no dvt [facility] dc home today form [facility] Subjective Cardiovascular: Denies: chest pain, lightheadedness, palpitations Respiratory: Reports: SOB with excertion Gastrointestinal/Abdominal: Denies: abdominal pain Genitourinary: Denies: burning Subjective better to day no cp walked to br , has ssob but per dtr is nto new , may be progressing Objective Last 24 Hour Vital Signs Date Time Temp Pulse Resp B/P (MAP) Pulse Ox O2 Delivery O2 Flow Rate FiO2 01/05/19 09:16 125/68 01/05/19 09:16 80 125/68 01/05/19 05:45 84 18 98 01/05/19 04:00 70 01/05/19 04:00 97.9 72 18 133/60 (84) 97 01/05/19 04:00 2.0 01/05/19 03:55 74 19 97 Full Face 30 3/24/19 00:59 77 33 95 Full Face 30 01/05/19 00:00 98.5 74 18 139/76 (97) 99 01/05/19 00:00 86 01/05/19 00:00 2.0 01/04/19 22:50 96 33 95 Full Face 30 01/04/19 21:00 Nasal Cannula 2.0 01/04/19 20:00 2.0 01/04/19 20:00 99.1 87 17 134/64 (87) 01/04/19 20:00 104 01/04/19 16:00 2.0 01/04/19 16:00 98.4 107 20 116/67 (83) 01/04/19 16:00 91 01/04/19 15:23 105 116/60 01/04/19 12:00 2.0 01/04/19 12:00 98.1 103 24 125/72 (89) 01/04/19 12:00 87 General Appearance: no apparent distress, alert Neck: supple Cardiovascular: irregularly irregular Respiratory/Chest: decreased breath sounds - basses bialt Abdomen: normal bowel sounds, non tender, soft Extremities: moderate edema Intake and Output 01/04/19 01/05/19 19:00 07:00 Intake Total 984.176 ml Balance 984.176 ml Intake Oral 720 ml IV Total 264.176 ml # Voids 5 # Bowel Movements 1 Laboratory Tests Test 01/04/19 14:10 01/05/19 04:20 Activated Partial Thromboplast Time 77 SEC (23-33) H 59 SEC (23-33) H Sodium Level 139 MMOL/L (136-145) Potassium Level 3.9 MMOL/L (3.5-5.1) Chloride Level 103 MMOL/L (98-107) Carbon Dioxide Level 28 MMOL/L (21-32) Anion Gap 8 mmol/L (5-15) Blood Urea Nitrogen 49 mg/dL (7-18) H Creatinine 1.9 MG/DL (0.55-1.30) H Estimat Glomerular Filtration Rate mL/min (>60) Glucose Level 90 MG/DL (74-106) Calcium Level 8.4 MG/DL (8.5-10.1) L Troponin I 0.000 ng/mL (0.000-0.056) Pro-B-Type Natriuretic Peptide 2775 pg/mL (0-125) H Microbiology Date/Time Source Procedure Growth Status 01/03/19 14:00 Blood Blood Culture - Preliminary NO GROWTH AFTER 24 HOURS Resulted 01/03/19 13:45 Blood Blood Culture - Preliminary NO GROWTH AFTER 24 HOURS Resulted 01/03/19 17:25 Nasal Nares MRSA Culture - Final NO METHICILLIN RESISTANT STAPH AUREUS... Complete 01/03/19 17:25 Rectum VRE Culture - Final NO VANCOMYCIN RESISTANT ENTEROCOCCUS ... Resulted 01/03/19 17:25 Rectum Pending Resulted Bon Metcalf MD Jan 05, 2019 10:28
[2019-01-05 12:00] VITALS: BP 131/59
--- NOTE | 2019-01-05 13:34 | Pulmonology Progress Note ---
Assessment/Plan Problems: (1) ACS (acute coronary syndrome) (2) Cellulitis (3) Atrial fibrillation (4) Malignant pleural effusion (5) Diabetes mellitus (6) Morbid obesity (7) SOURAV (obstructive sleep apnea) Assessment/Plan dc heparin drip Eliquis resumed on Vancomycin awaiting ID evaluation monitor hear rate. incentive spirometry Subjective ROS Limited/Unobtainable: No Interval Events: feeling slightly better Constitutional: Reports: no symptoms HEENT: Repors: no symptoms Allergies: Coded Allergies: No Known Allergies (Unverified , 04/26/14) Objective Last 24 Hour Vital Signs Date Time Temp Pulse Resp B/P (MAP) Pulse Ox O2 Delivery O2 Flow Rate FiO2 01/05/19 09:16 125/68 01/05/19 09:16 80 125/68 01/05/19 09:00 Nasal Cannula 2.0 01/05/19 08:00 97.9 80 18 125/65 (85) 99 01/05/19 08:00 2.0 01/05/19 05:45 84 18 98 01/05/19 04:00 70 01/05/19 04:00 97.9 72 18 133/60 (84) 97 01/05/19 04:00 2.0 01/05/19 03:55 74 19 97 Full Face 30 01/05/19 00:59 77 33 95 Full Face 30 01/05/19 00:00 98.5 74 18 139/76 (97) 99 01/05/19 00:00 86 01/05/19 00:00 2.0 01/04/19 22:50 96 33 95 Full Face 30 01/04/19 21:00 Nasal Cannula 2.0 01/04/19 20:00 2.0 01/04/19 20:00 99.1 87 17 134/64 (87) 01/04/19 20:00 104 01/04/19 16:00 2.0 01/04/19 16:00 98.4 107 20 116/67 (83) 01/04/19 16:00 91 01/04/19 15:23 105 116/60 Intake and Output 01/04/19 01/05/19 19:00 07:00 Intake Total 984.176 ml Balance 984.176 ml Intake Oral 720 ml IV Total 264.176 ml # Voids 5 # Bowel Movements 1 General Appearance: WD/WN HEENT: normocephalic, atraumatic Respiratory/Chest: lungs clear Cardiovascular: normal peripheral pulses Abdomen: normal bowel sounds, soft, non tender Genitourinary: normal external genitalia Extremities: no clubbing Neurologic/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 Complete 01/03/19 17:25 Rectum VRE Culture - Final NO VANCOMYCIN RESISTANT ENTEROCOCCUS ... Resulted 01/03/19 17:25 Rectum Pending Resulted Laboratory Tests 01/04/19 14:10: Activated Partial Thromboplast Time 77H 01/05/19 04:20: Activated Partial Thromboplast Time 59H, Sodium Level 139, Potassium Level 3.9, Chloride Level 103, Carbon Dioxide Level 28, Anion Gap 8, Blood Urea Nitrogen 49H, Creatinine 1.9H, Estimat Glomerular Filtration Rate , Glucose Level 90, Calcium Level 8.4L, Troponin I 0.000, Pro-B-Type Natriuretic Peptide 2775H 01/05/19 11:35: Activated Partial Thromboplast Time 45H Current Medications Medications (Trade) Dose Ordered Sig/Julio Cesar Route PRN Reason Start Time Stop Time Status Last Admin Dose Admin Acetaminophen (Tylenol) 650 mg Q4H PRN ORAL FEVER 01/03/19 18:00 02/02/19 17:59 Albuterol/ Ipratropium (Albuterol/ Ipratropium) 3 ml Q4H PRN HHN Shortness of Breath 01/03/19 18:00 01/08/19 17:59 Amiodarone HCl (Cordarone) 200 mg EVERY 12 HOURS ORAL 01/03/19 21:00 02/02/19 20:59 01/05/19 09:17 Apixaban (Eliquis) 2.5 mg BID ORAL 01/05/19 18:00 02/04/19 17:59 Calcium Carbonate (Tums) 2,500 mg BID ORAL 01/05/19 09:00 02/04/19 08:59 01/05/19 09:17 Cinacalcet (Sensipar) 30 mg DAILY ORAL 01/04/19 09:00 02/03/19 08:59 01/04/19 08:58 Diltiazem HCl (Cardizem CD) 120 mg DAILY ORAL 01/05/19 09:00 02/04/19 08:59 01/05/19 09:16 Diltiazem HCl (Cardizem) 10 mg EVERY HOUR PRN IV heart rate more than 120, 01/03/19 18:00 02/02/19 17:59 Ferrous Sulfate (Feosol) 325 mg BID ORAL 01/05/19 09:00 02/04/19 08:59 01/05/19 09:17 Irbesartan (Avapro) 300 mg DAILY ORAL 01/05/19 09:00 02/04/19 08:59 01/05/19 09:16 Ketorolac Tromethamine (Toradol 30mg) 30 mg Q6H PRN IV moderate pain ( 4-6) 01/03/19 18:00 01/08/19 17:59 Loratadine (Claritin 10mg) 10 mg DAILY ORAL 01/05/19 09:00 02/04/19 08:59 01/05/19 09:14 Metoprolol Tartrate (Lopressor) 5 mg EVERY HOUR PRN IVP heart rate more than 140 01/03/19 18:00 02/02/19 17:59 Montelukast Sodium (Singulair) 10 mg DAILY ORAL 01/05/19 09:00 02/04/19 08:59 01/05/19 09:15 Morphine Sulfate (Morphine Sulfate) 2 mg Q4H PRN IVP severe Pain (Pain Scale 7-10) 01/03/19 18:00 01/10/19 17:59 01/03/19 22:13 Nitroglycerin (Ntg) 0.4 mg Q5M PRN SL Prn Chest Pain 01/03/19 18:00 02/02/19 17:59 Non-Formulary Medication (Non-Formulary Med) 1 ea DAILY ORAL 01/05/19 09:00 02/04/19 08:59 UNV Ondansetron HCl (Zofran) 4 mg Q6H PRN IVP Nausea & Vomiting 01/03/19 18:00 02/02/19 17:59 Pantoprazole (Protonix) 40 mg DAILY ORAL 01/04/19 09:00 02/03/19 08:59 01/05/19 09:14 Patient Own Medication (Patient's Own Med) 1 ea BEDTIME ORAL 01/04/19 21:00 02/03/19 20:59 01/04/19 20:51 Polyethylene Glycol (Miralax) 17 gm DAILYPRN PRN ORAL Constipation 01/03/19 18:00 02/02/19 17:59 Temazepam (Restoril) 15 mg HSPRN PRN ORAL Insomnia 01/03/19 18:00 01/10/19 17:59 Vitamin D (Vitamin D) 4,000 intlu DAILY ORAL 01/05/19 09:00 02/04/19 08:59 01/05/19 09:14 Urvashi Carolina MD Jan 05, 2019 13:34
[2019-01-05] MEDS ORDERED: Nitroglycerin Subl 0.4mg tab SL PRN (15:30)
--- NOTE | 2019-01-05 15:30 | NUR ---
TRANSFER TO FLOOR: Patient transferred to [facility], per Dr. Carolina. Report given to Mary Kay, Charge Nurse and BRIGIDA Barrientos. Belongings and medications given to BRIGIDA Barrientos. Family and or S/O informed of transfer.
[2019-01-05 16:00] VITALS: BP 121/65
[2019-01-05] MEDS ORDERED: Vancomycin 2 GM in D5W 500ml 550 ML IVPB ONE (16:00)
[2019-01-05] MEDS ORDERED: dilTIAZem HCl 25mg/5ml Inj IV PRN (16:00)
[2019-01-05] MEDS ORDERED: Metoprolol 5mg/5ml Inj IVP PRN (16:00)
[2019-01-05] MEDS ORDERED: Vancomycin 2gm/D5W 550ml IVPB ONE ×2 (16:00)
[2019-01-05] MEDS: Tums 500mg ORAL SCH (17:50)
[2019-01-05] MEDS: Eliquis 2.5mg tablet ORAL SCH (17:51)
[2019-01-05] MEDS ORDERED: Albuterol/Ipratropium 3ml neb HHN PRN (18:00)
[2019-01-05] MEDS ORDERED: Ketorolac 30mg Inj IV PRN (18:00)
[2019-01-05] MEDS ORDERED: Eliquis 2.5mg tablet ORAL SCH (18:00)
[2019-01-05] MEDS ORDERED: Miralax 17gm pkt ORAL PRN (18:00)
[2019-01-05] MEDS ORDERED: Morphine Sulfate 2mg/ml Inj(IV/IM USE ONLY) IVP PRN (18:00)
[2019-01-05 19:02] VITALS: BP 166/74
--- NOTE | 2019-01-05 19:18 | NUR ---
HAND-OFF: Report given to RN Blair.
--- NOTE | 2019-01-05 19:38 | NUR ---
NURSE NOTES: Pt received awake, alert with daughter at bedside, 2 IV sites, no c/o pain or signs of distress, able to make needs known, asking for a puriwick to use at night when patient is going to sleep, was shown pleurx catheter site with dressing in place. will continue to monitor.
[2019-01-05] MEDS: NovoLOG Insulin Flexpen SUBQ SCH (22:00)
[2019-01-06] VITALS: BP 133/74
[2019-01-06 04:00] VITALS: BP 112/61
[2019-01-06] MEDS: NovoLOG Insulin Flexpen SUBQ SCH ×4 (06:30→21:00)
--- NOTE | 2019-01-06 07:29 | NUR ---
HAND-OFF: Report given to BRIGIDA Grace.
[2019-01-06 07:41] LABS: BASOPHILS % (AUTO) 0.8 % (0.0-2.0); HEMATOCRIT 31.5 % (37.0-47.0); HEMOGLOBIN 9.9 G/DL (12.0-16.0); LYMPHOCYTES % (AUTO) 8.5 % (20.0-45.0); MEAN CORPUSCULAR VOLUME 92 FL (80-99); MONOCYTES % (AUTO) 6.7 % (1.0-10.0); PLATELET COUNT 154 K/UL (150-450); RED BLOOD COUNT 3.42 M/UL (4.20-5.40); RED CELL DISTRIBUTION WIDTH 17.3 % (11.6-14.8)
--- NOTE | 2019-01-06 07:58 | NUR ---
NURSE NOTES: Received pt from [facility] with stable condition. daughter at bedside. pt is on chair. breathing regular and unlabored. no respiratory distress noted at this time. dressing covered on (R)trunk. dry and intact. denies any pain. will continue to monitor plan of care
[2019-01-06 08:00] VITALS: BP 97/58
[2019-01-06 08:12] LABS: ALANINE AMINOTRANSFERASE 11 U/L (12-78); ALBUMIN 1.9 G/DL (3.4-5.0); ALBUMIN/GLOBULIN RATIO 0.4 (1.0-2.7); ALKALINE PHOSPHATASE 57 U/L (46-116); ANION GAP 10 mmol/L (5-15); ASPARTATE AMINO TRANSFERASE 14 U/L (15-37); BILIRUBIN,TOTAL 0.2 MG/DL (0.2-1.0); BLOOD UREA NITROGEN 53 mg/dL (7-18); CALCIUM 8.8 MG/DL (8.5-10.1); CARBON DIOXIDE 27 MMOL/L (21-32); CHLORIDE 102 MMOL/L (98-107); CREATININE 2.2 MG/DL (0.55-1.30); PHOSPHORUS 4.8 MG/DL (2.5-4.9); POTASSIUM 4.3 MMOL/L (3.5-5.1); SODIUM 138 MMOL/L (136-145)
[2019-01-06] MEDS: Tums 500mg ORAL SCH ×2 (09:00→17:04)
[2019-01-06] MEDS ORDERED: Irbesartan 150mg tablet ORAL SCH (09:00)
[2019-01-06] MEDS: dilTIAZem HCl CD 120mg cap ORAL SCH (09:00)
[2019-01-06] MEDS: Sensipar 30mg Tab ORAL SCH (09:00)
[2019-01-06] MEDS: Amiodarone 200mg tab ORAL SCH ×2 (09:17→20:53)
[2019-01-06] MEDS: Montelukast 10mg tablet ORAL SCH (09:18)
[2019-01-06] MEDS: Eliquis 2.5mg tablet ORAL SCH ×2 (09:18→17:04)
[2019-01-06] MEDS: Vitamin D 1000 IU Tab ORAL SCH (09:19)
[2019-01-06 12:00] VITALS: BP 118/55
--- NOTE | 2019-01-06 13:13 | NUR ---
PAPER COUNTERBAKER DOUGHNUT SI:ACUTE CORONARY SYNDROME VS: BP97/58, P 77, T 98.0, RR 23, SpO2 97, 2.0L Full Face Mask FiO2 30 WBC 12.0, RBC 3.42, Hgb 9.9, Hct 31.5, BUN 53, CR 2.2 IS:LORATADINE 10mg SINGULAIR 10mg PROTONIX 40mg AMIODARONE HCI 200mg APIXABAN 2.5mg MED/SURG STATUS
--- NOTE | 2019-01-06 13:54 | Pulmonology Progress Note ---
Assessment/Plan Problems: (1) ACS (acute coronary syndrome) (2) Cellulitis (3) Atrial fibrillation (4) Malignant pleural effusion (5) Diabetes mellitus (6) Morbid obesity (7) SOURAV (obstructive sleep apnea) Assessment/Plan ID and renal evaluation pending Eliquis resumed on Vancomycin awaiting ID evaluation monitor hear rate. incentive spirometry continue abx Subjective ROS Limited/Unobtainable: No Interval Events: slightly sleepy today Constitutional: Reports: no symptoms HEENT: Repors: no symptoms Respiratory: Reports: no symptoms Allergies: Coded Allergies: No Known Allergies (Unverified , 04/26/14) Objective Last 24 Hour Vital Signs Date Time Temp Pulse Resp B/P (MAP) Pulse Ox O2 Delivery O2 Flow Rate FiO2 01/06/19 12:00 2.0 01/06/19 12:00 98.0 77 20 118/55 (76) 99 01/06/19 09:00 Nasal Cannula 2.0 01/06/19 09:00 2.0 30 01/06/19 09:00 97/58 01/06/19 09:00 81 97/58 01/06/19 08:00 98.2 81 20 97/58 (71) 98 01/06/19 05:18 77 23 98 Full Face 30 01/06/19 04:00 2.0 01/06/19 04:00 98.3 94 20 112/61 (78) 97 01/06/19 03:23 81 19 99 Full Face 30 01/06/19 00:28 88 25 98 Full Face 30 01/06/19 00:00 2.0 01/06/19 00:00 97.2 81 18 133/74 (93) 96 01/05/19 21:00 Nasal Cannula 2.0 01/05/19 20:45 88 24 Nasal Cannula 3.0 32 01/05/19 19:02 166/74 (104) 01/05/19 16:00 2.0 01/05/19 16:00 97.7 95 20 121/65 (83) 96 Intake and Output 01/05/19 01/06/19 19:00 07:00 Intake Total 1310 ml 500 ml Output Total 200 ml Balance 1310 ml 300 ml Intake Oral 500 ml IV Total 550 ml Other 760 ml Output Urine Total 200 ml General Appearance: WD/WN HEENT: normocephalic, atraumatic Respiratory/Chest: chest wall non-tender, lungs clear Breasts: no masses Cardiovascular: normal peripheral pulses Abdomen: normal bowel sounds, no organomegaly Genitourinary: normal external genitalia Skin: no rash, no lesions Microbiology Date/Time Source Procedure Growth Status 01/03/19 14:00 Blood Blood Culture - Preliminary NO GROWTH AFTER 48 HOURS Resulted 01/03/19 17:25 Nasal Nares MRSA Culture - Final NO METHICILLIN RESISTANT STAPH AUREUS... Complete 01/03/19 17:25 Rectum VRE Culture - Final NO VANCOMYCIN RESISTANT ENTEROCOCCUS ... Complete 01/03/19 17:25 Rectum - Final NO CARBAPENEM-RESISTANT ENTEROBACTERI... Complete Laboratory Tests 01/06/19 07:20: White Blood Count 12.0H, Red Blood Count 3.42L, Hemoglobin 9.9L, Hematocrit 31.5L, Mean Corpuscular Volume 92, Mean Corpuscular Hemoglobin 28.8, Mean Corpuscular Hemoglobin Concent 31.3L, Red Cell Distribution Width 17.3H, Platelet Count 154, Mean Platelet Volume 8.6, Neutrophils (%) (Auto) 83.0H, Lymphocytes (%) (Auto) 8.5L, Monocytes (%) (Auto) 6.7, Eosinophils (%) (Auto) 1.0, Basophils (%) (Auto) 0.8, Erythrocyte Sedimentation Rate 113H, Sodium Level 138, Potassium Level 4.3, Chloride Level 102, Carbon Dioxide Level 27, Anion Gap 10, Blood Urea Nitrogen 53H, Creatinine 2.2H, Estimat Glomerular Filtration Rate , Glucose Level 139H, Calcium Level 8.8, Phosphorus Level 4.8, Magnesium Level 1.6L, Total Bilirubin 0.2, Aspartate Amino Transf (AST/SGOT) 14L , Alanine Aminotransferase (ALT/SGPT) 11L, Alkaline Phosphatase 57, C-Reactive Protein, Quantitative 28.4H, Total Protein 6.5, Albumin 1.9L, Globulin 4.6, Albumin/Globulin Ratio 0.4L, Random Vancomycin Level 17.0 Current Medications Medications (Trade) Dose Ordered Sig/Julio Cesar Route PRN Reason Start Time Stop Time Status Last Admin Dose Admin Acetaminophen (Tylenol) 650 mg Q4H PRN ORAL FEVER 01/05/19 18:00 02/02/19 17:59 Albuterol/ Ipratropium (Albuterol/ Ipratropium) 3 ml Q4H PRN HHN Shortness of Breath 01/05/19 18:00 01/08/19 17:59 Amiodarone HCl (Cordarone) 200 mg EVERY 12 HOURS ORAL 01/05/19 21:00 02/02/19 20:59 01/06/19 09:17 Apixaban (Eliquis) 2.5 mg BID ORAL 01/05/19 18:00 02/04/19 17:59 01/06/19 09:18 Calcium Carbonate (Tums) 2,500 mg BID ORAL 01/05/19 18:00 02/04/19 08:59 01/05/19 17:50 Cinacalcet (Sensipar) 30 mg DAILY ORAL 01/06/19 09:00 02/03/19 08:59 Dextrose (Dextrose 50%) 25 ml Q30M PRN IV Hypoglycemia 01/05/19 21:15 02/04/19 21:14 Dextrose (Dextrose 50%) 50 ml Q30M PRN IV Hypoglycemia 01/05/19 21:15 02/04/19 21:14 Diltiazem HCl (Cardizem CD) 120 mg DAILY ORAL 01/06/19 09:00 02/04/19 08:59 Ferrous Sulfate (Feosol) 325 mg BID ORAL 01/05/19 18:00 02/04/19 08:59 01/06/19 09:18 Insulin Aspart (NovoLOG) BEFORE MEALS AND HS SUBQ 01/05/19 22:00 02/04/19 21:59 Irbesartan (Avapro) 300 mg DAILY ORAL 01/06/19 09:00 02/04/19 08:59 Ketorolac Tromethamine (Toradol 30mg) 30 mg Q6H PRN IV moderate pain ( 4-6) 01/05/19 18:00 01/10/19 17:59 Loratadine (Claritin 10mg) 10 mg DAILY ORAL 01/06/19 09:00 02/04/19 08:59 01/06/19 09:16 Montelukast Sodium (Singulair) 10 mg DAILY ORAL 01/06/19 09:00 02/04/19 08:59 01/06/19 09:18 Morphine Sulfate (Morphine Sulfate) 2 mg Q4H PRN IVP severe Pain (Pain Scale 7-10) 01/05/19 18:00 01/10/19 17:59 Nitroglycerin (Ntg) 0.4 mg Q5M PRN SL Prn Chest Pain 01/05/19 15:30 02/02/19 17:59 Ondansetron HCl (Zofran) 4 mg Q6H PRN IVP Nausea & Vomiting 01/05/19 18:00 02/02/19 17:59 Pantoprazole (Protonix) 40 mg DAILY ORAL 01/06/19 09:00 02/03/19 08:59 01/06/19 09:19 Patient Own Medication (Patient's Own Med) 1 ea BEDTIME ORAL 01/05/19 21:00 02/03/19 20:59 01/05/19 20:52 Patient Own Medication (Patient's Own Med) 1 ea DAILY ORAL 01/05/19 20:00 02/04/19 19:59 01/06/19 09:54 Polyethylene Glycol (Miralax) 17 gm DAILYPRN PRN ORAL Constipation 01/05/19 18:00 02/02/19 17:59 Temazepam (Restoril) 15 mg HSPRN PRN ORAL Insomnia 01/05/19 18:00 01/10/19 17:59 Vancomycin HCl (Vanco rx to dose) 1 ea DAILY PRN MISC Per rx protocol 01/06/19 09:00 02/04/19 13:44 Vitamin D (Vitamin D) 4,000 intlu DAILY ORAL 01/06/19 09:00 02/04/19 08:59 01/06/19 09:19 Urvashi Carolina MD Jan 06, 2019 13:54
--- NOTE | 2019-01-06 14:42 | Consultation ---
Consult Note Consult Note asked to eval for rising Cr 73-year-old female presents ED for evaluation. Brought in by EMS complaining of chest pain. Started today just prior to arrival. Sudden onset. Left-sided , 7 out of 10, sharp, radiating to the back. Patient states that she had thoracentesis performed today from the right lung at [facility]. Has pigtail catheter in place. History of stage IV lung cancer. Was given aspirin and nitroglycerin by EMS without significant relief. No other aggravating relieving factors. Denies any other associated symptoms No Known Allergies (Unverified , 04/26/14) Past Medical History: DM, HTN, COPD Hx Hypertension: Yes Hx COPD: Yes Hx Diabetes: Yes interviewed history taken from daughter . Assessment/Plan Acute Renal Failure Morbid Obesity DM HTN Stage 4 Lung Cancer, Malignant Pleural effusion ACS Atrial Fib SOURAV Adjust BP meds Suggest check ABG ? retaining CO2 optimize pulmonary status avoid Nephrotoxics monitor renal parameters per orders Jeb Tang MD Jan 06, 2019 14:42
--- NOTE | 2019-01-06 15:58 | Consultation ---
History of Present Illness General Date patient seen: Jan 06, 2019 Chief Complaint: Chest Pain Present Illness HPI 73 y/o F with hx of HTN, Dm2, COPD, morbid obesity, Afib, hyperparathyroidism, SORUAV, GIB, chronic respiratory failure on home O2, lymphedema, AOCD, stage IV lung cancer c/w malignant effusion and mets to bone and brain presents to ED on 01/03 with 1 day onset of sudden L side chest pain, 7/10 intensity, sharp, radiating to back. Of note, day of admission she had a R pigtail catheter placement done at [facility]. Chest pain worse with deep breath and lying down. Allergies: Coded Allergies: No Known Allergies (Unverified , 04/26/14) Medication History Scheduled Amiodarone Hcl* (Cordarone*), 200 MG ORAL EVERY 12 HOURS, (Reported) Cinacalcet* (Sensipar*), 30 MG ORAL DAILY, (Reported) Clindamycin Hcl* (Clindamycin Hcl*), 150 MG ORAL FOUR TIMES A DAY Clotrimazole* (Lotrimin*), 1 APPLIC TOPIC TWICE A DAY Indomethacin (Indomethacin), 25 MG ORAL Q8H Metoprolol Succinate* (Metoprolol Succinate*), 50 MG ORAL DAILY, (Reported) Omeprazole (Omeprazole), 40 MG ORAL DAILY, (Reported) Torsemide* (Demadex*), 20 MG ORAL DAILY, (Reported) Scheduled PRN Hydrocodone Bit/Acetaminophen 5-325* ([place] 5-325*), 1 TAB ORAL Q6H PRN for For Pain Tramadol Hcl* (Ultram*), 50 MG ORAL Q6H PRN for For Pain, (Reported) Miscellaneous Medications Dulaglutide (Trulicity), 1.5 MG SQ, (Reported) Lorlatinib (Lorbrena), 100 MG PO, (Reported) Pitavastatin Calcium (Livalo), 2 MG PO, (Reported) Patient History Healthcare decision maker daughter wisam Resuscitation status Full Code Advanced Directive on File Patient History Narrative Pmhx: as above Shx: She used to smoke many years ago although she has not done so recently. 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 Fhx non contributory Review of Systems All Other Systems: negative except mentioned in HPI Physical Exam Physical Exam Narrative General Appearance: morbidly obese Lines, tubes and drains: peripheral HEENT: normocephalic, atraumatic Neck: non-tender, supple Respiratory/Chest: chest wall non-tender, lungs clear Cardiovascular/Chest: normal peripheral pulses Abdomen: normal bowel sounds EXT: chronic venous stasis and lymphadema b/l; L> R redness, swelling and mild TTP Last 24 Hour Vital Signs Date Time Temp Pulse Resp B/P (MAP) Pulse Ox O2 Delivery O2 Flow Rate FiO2 01/06/19 12:00 2.0 01/06/19 12:00 98.0 77 20 118/55 (76) 99 01/06/19 09:00 Nasal Cannula 2.0 01/06/19 09:00 2.0 30 01/06/19 09:00 97/58 01/06/19 09:00 81 97/58 01/06/19 08:00 98.2 81 20 97/58 (71) 98 01/06/19 05:18 77 23 98 Full Face 30 01/06/19 04:00 2.0 01/06/19 04:00 98.3 94 20 112/61 (78) 97 01/06/19 03:23 81 19 99 Full Face 30 01/06/19 00:28 88 25 98 Full Face 30 01/06/19 00:00 2.0 01/06/19 00:00 97.2 81 18 133/74 (93) 96 01/05/19 21:00 Nasal Cannula 2.0 01/05/19 20:45 88 24 Nasal Cannula 3.0 32 01/05/19 19:02 166/74 (104) 01/05/19 16:00 2.0 01/05/19 16:00 97.7 95 20 121/65 (83) 96 Intake and Output 01/05/19 01/06/19 19:00 07:00 Intake Total 1310 ml 500 ml Output Total 200 ml Balance 1310 ml 300 ml Intake Oral 500 ml IV Total 550 ml Other 760 ml Output Urine Total 200 ml Laboratory Tests Test 01/06/19 07:20 White Blood Count 12.0 K/UL (4.8-10.8) H Red Blood Count 3.42 M/UL (4.20-5.40) L Hemoglobin 9.9 G/DL (12.0-16.0) L Hematocrit 31.5 % (37.0-47.0) L Mean Corpuscular Volume 92 FL (80-99) Mean Corpuscular Hemoglobin 28.8 PG (27.0-31.0) Mean Corpuscular Hemoglobin Concent 31.3 G/DL (32.0-36.0) L Red Cell Distribution Width 17.3 % (11.6-14.8) H Platelet Count 154 K/UL (150-450) Mean Platelet Volume 8.6 FL (6.5-10.1) Neutrophils (%) (Auto) 83.0 % (45.0-75.0) H Lymphocytes (%) (Auto) 8.5 % (20.0-45.0) L Monocytes (%) (Auto) 6.7 % (1.0-10.0) Eosinophils (%) (Auto) 1.0 % (0.0-3.0) Basophils (%) (Auto) 0.8 % (0.0-2.0) Erythrocyte Sedimentation Rate 113 MM/HR (0-30) H Sodium Level 138 MMOL/L (136-145) Potassium Level 4.3 MMOL/L (3.5-5.1) Chloride Level 102 MMOL/L (98-107) Carbon Dioxide Level 27 MMOL/L (21-32) Anion Gap 10 mmol/L (5-15) Blood Urea Nitrogen 53 mg/dL (7-18) H Creatinine 2.2 MG/DL (0.55-1.30) H Estimat Glomerular Filtration Rate mL/min (>60) Glucose Level 139 MG/DL (74-106) H Calcium Level 8.8 MG/DL (8.5-10.1) Phosphorus Level 4.8 MG/DL (2.5-4.9) Magnesium Level 1.6 MG/DL (1.8-2.4) L Total Bilirubin 0.2 MG/DL (0.2-1.0) Aspartate Amino Transf (AST/SGOT) 14 U/L (15-37) L Alanine Aminotransferase (ALT/SGPT) 11 U/L (12-78) L Alkaline Phosphatase 57 U/L (46-116) C-Reactive Protein, Quantitative 28.4 mg/dL (0.00-0.90) H Total Protein 6.5 G/DL (6.4-8.2) Albumin 1.9 G/DL (3.4-5.0) L Globulin 4.6 g/dL Albumin/Globulin Ratio 0.4 (1.0-2.7) L Random Vancomycin Level 17.0 ug/mL Height (Feet): 5 Height (Inches): 5.00 Weight (Pounds): 260 Medications Current Medications Medications (Trade) Dose Ordered Sig/Julio Cesar Route PRN Reason Start Time Stop Time Status Last Admin Dose Admin Acetaminophen (Tylenol) 650 mg Q4H PRN ORAL FEVER 01/05/19 18:00 02/02/19 17:59 Albuterol/ Ipratropium (Albuterol/ Ipratropium) 3 ml Q4H PRN HHN Shortness of Breath 01/05/19 18:00 01/08/19 17:59 Amiodarone HCl (Cordarone) 200 mg EVERY 12 HOURS ORAL 01/05/19 21:00 02/02/19 20:59 01/06/19 09:17 Apixaban (Eliquis) 2.5 mg BID ORAL 01/05/19 18:00 02/04/19 17:59 01/06/19 09:18 Calcium Carbonate (Tums) 2,500 mg BID ORAL 01/05/19 18:00 02/04/19 08:59 01/05/19 17:50 Cinacalcet (Sensipar) 30 mg DAILY ORAL 01/06/19 09:00 02/03/19 08:59 Dextrose (Dextrose 50%) 25 ml Q30M PRN IV Hypoglycemia 01/05/19 21:15 02/04/19 21:14 Dextrose (Dextrose 50%) 50 ml Q30M PRN IV Hypoglycemia 01/05/19 21:15 02/04/19 21:14 Diltiazem HCl (Cardizem CD) 120 mg DAILY ORAL 01/06/19 09:00 02/04/19 08:59 Insulin Aspart (NovoLOG) BEFORE MEALS AND HS SUBQ 01/05/19 22:00 02/04/19 21:59 Irbesartan (Avapro) 75 mg DAILY ORAL 01/07/19 09:00 02/04/19 08:59 Loratadine (Claritin 10mg) 10 mg DAILY ORAL 01/06/19 09:00 02/04/19 08:59 01/06/19 09:16 Montelukast Sodium (Singulair) 10 mg DAILY ORAL 01/06/19 09:00 02/04/19 08:59 01/06/19 09:18 Morphine Sulfate (Morphine Sulfate) 2 mg Q4H PRN IVP severe Pain (Pain Scale 7-10) 01/05/19 18:00 01/10/19 17:59 Nitroglycerin (Ntg) 0.4 mg Q5M PRN SL Prn Chest Pain 01/05/19 15:30 02/02/19 17:59 Ondansetron HCl (Zofran) 4 mg Q6H PRN IVP Nausea & Vomiting 01/05/19 18:00 02/02/19 17:59 Pantoprazole (Protonix) 40 mg Q12HR ORAL 01/06/19 21:00 02/03/19 08:59 Patient Own Medication (Patient's Own Med) 1 ea BEDTIME ORAL 01/05/19 21:00 02/03/19 20:59 01/05/19 20:52 Patient Own Medication (Patient's Own Med) 1 ea DAILY ORAL 01/05/19 20:00 02/04/19 19:59 01/06/19 09:54 Polyethylene Glycol (Miralax) 17 gm DAILYPRN PRN ORAL Constipation 01/05/19 18:00 02/02/19 17:59 Temazepam (Restoril) 15 mg HSPRN PRN ORAL Insomnia 01/05/19 18:00 01/10/19 17:59 Vancomycin HCl (Vanco rx to dose) 1 ea DAILY PRN MISC Per rx protocol 01/06/19 09:00 02/04/19 13:44 Vitamin D (Vitamin D) 4,000 intlu DAILY ORAL 01/06/19 09:00 02/04/19 08:59 01/06/19 09:19 Assessment/Plan Assessment/Plan Abx: IV Vancomycin 01/05- Assessment: chest pain, pleuritic L> R leg mild cellulitis in the setting of chronic lymphedema Afebrile Leukocytosis, improving - CXR: Cardiomegaly, with pulmonary interstitial edema and likely bilateral pleural effusions -Bcx NTD stage IV lung cancer c/w malignant effusion and mets to bone and brain FOUZIA HTN Dm2 COPD morbid obesity Afib hyperparathyroidism SOURAV GIB chronic respiratory failure on home O2 lymphedema AOCD Plan: -Switch IV Vancomycin #2/5 to Ancef for L>R cellulitis -upon discharge can be transitioned to Keflex -f.u cx -Monitor CBC/CMP, temperatures -aspiration precautions -renal, cards f/u Thank you for this consultation. Will continue to follow along with you. Bina Flanagan M.D. Jan 06, 2019 15:58
[2019-01-06 16:00] VITALS: BP 125/58
--- NOTE | 2019-01-06 17:00 | NUR ---
RESPIRATORY NOTE: Noticed that patients room does not have a red outlet for BIPAP. Spoke to charge nurse kiley about the situation that the patient needs to have a red outlet in her room.
[2019-01-06 19:03] LABS: BASOPHILS % (AUTO) 1.3 % (0.0-2.0); EOSINOPHILS % (AUTO) 0.9 % (0.0-3.0); HEMATOCRIT 32.3 % (37.0-47.0); HEMOGLOBIN 10.2 G/DL (12.0-16.0); LYMPHOCYTES % (AUTO) 7.4 % (20.0-45.0); MEAN CORPUSCULAR VOLUME 93 FL (80-99); MONOCYTES % (AUTO) 6.7 % (1.0-10.0); NEUTROPHILS % (AUTO) 83.6 % (45.0-75.0); PLATELET COUNT 129 K/UL (150-450); RED BLOOD COUNT 3.49 M/UL (4.20-5.40); RED CELL DISTRIBUTION WIDTH 17.2 % (11.6-14.8); WHITE BLOOD COUNT 13.7 K/UL (4.8-10.8)
--- NOTE | 2019-01-06 19:19 | NUR ---
HAND-OFF: Report given to BRIGIDA Velasco.
--- NOTE | 2019-01-06 19:48 | NUR ---
NURSE NOTES: Received patient in bed, no acute distress noted, VSS, afebrile, family at bedside, call light is within reach, bed is in low position, locked and alarm is on. Will continue to monitor for safety and comfort.
[2019-01-06 20:00] VITALS: BP 137/89
[2019-01-06] MEDS: ceFAZolin 0.5gm in D5W 55ml IV SCH (20:53)
[2019-01-06] MEDS ORDERED: ceFAZolin sod 1 GM in D5W 55 ML IVPB SCH (21:00)
[2019-01-06] MEDS ORDERED: ALPRAZolam 0.5mg tab ORAL PRN (21:15)
--- NOTE | 2019-01-06 23:29 | NUR ---
RESPIRATORY NOTE: PT PLACED ON BIPAP AT THIS TIME. CURRENT BIPAP SETTINGS 12/5 BACK UP RATE OF 16, 30% FIO2. PT IS STABLE AND COMFORTABLE ON CURRENT SETTINGS. NO FACIAL WOUNDS FOUND PRIOR TO PLACING PT ON FULL FACE MASK. PT IS REFUSING SPONGE TAPE A PROTECTIVE MEASURE TO PREVENT SKIN BREAKDOWN. BENEFITS OF USING THE TAPE WERE EXPLAINED TO PT AND SHE IS AWARE THAT SKIN BREAKDOWN MAY OCCUR IF SHE DOESN'T WEAR IT. BRIGIDA RODRIGES WAS NOTIFIED THAT PT IS REUSING TAPE. NO S/S OF RESPIRATORY DISTRESS NOTED AT THIS TIME. WILL CONTINUE TO MONITOR. Addendum: 01/07/19 at 0613 by GULSHAN BAY REASON FOR AMENDMENT: [place]. BRIGIDA RODRIGES WAS NOTIFIED THAT PT IS REFUSING TAPE.
[2019-01-07] VITALS: BP 128/79
[2019-01-07 04:00] VITALS: BP 137/85
[2019-01-07 05:12] VITALS: BP 137/85
--- NOTE | 2019-01-07 05:25 | NUR ---
RESPIRATORY NOTE: PT REMAINED STABLE ON BIPAP THOUGHT THE NIGHT PER BIPAP NOC ORDER. PT IS CURRENTLY ON 2LPM NC WITH A SATURATION OF 97%. ALL VS WNL. FACE WAS INSPECTED AND NO FACIAL WOUNDS WERE FOUND. NO S/S OF RESPIRATORY DISTRESS NOTED AT THIS TIME.
[2019-01-07] MEDS: NovoLOG Insulin Flexpen SUBQ SCH ×2 (05:55→11:30)
--- NOTE | 2019-01-07 07:01 | NUR ---
HAND-OFF: Report given to Saima ALLRED.
[2019-01-07 07:50] LABS: ALANINE AMINOTRANSFERASE 12 U/L (12-78); ALBUMIN 2.1 G/DL (3.4-5.0); ALBUMIN/GLOBULIN RATIO 0.4 (1.0-2.7); ALKALINE PHOSPHATASE 54 U/L (46-116); ANION GAP 9 mmol/L (5-15); ASPARTATE AMINO TRANSFERASE 17 U/L (15-37); BILIRUBIN,TOTAL 0.2 MG/DL (0.2-1.0); BLOOD UREA NITROGEN 52 mg/dL (7-18); CALCIUM 9.1 MG/DL (8.5-10.1); CARBON DIOXIDE 28 MMOL/L (21-32); CHLORIDE 104 MMOL/L (98-107); CHOLESTEROL 219 MG/DL (< 200); CREATINE KINASE 12 U/L (26-308); CREATININE 2.2 MG/DL (0.55-1.30); HDL CHOLESTEROL 77 MG/DL (40-60); POTASSIUM 4.6 MMOL/L (3.5-5.1); SODIUM 141 MMOL/L (136-145); TRIGLYCERIDES 85 MG/DL (30-150)
--- NOTE | 2019-01-07 07:51 | NUR ---
NURSE NOTES: Patient received in stable condition, resting by the bedside with daughter. Alert and oriented, expresses fatigue. Denies respiratory distress or pain at this time. Bed locked in low position, call light within reach. Will continue to monitor.
[2019-01-07 08:00] VITALS: BP 141/55
[2019-01-07 08:17] LABS: FERRITIN 1285 NG/ML (8-388)
[2019-01-07 08:25] LABS: % IRON SATURATION 18 % (15-50); IRON 27 ug/dL (50-175); TOTAL IRON BINDING CAPACITY 149 ug/dL (250-450)
[2019-01-07] MEDS: ceFAZolin 0.5gm in D5W 55ml IV SCH (08:27)
[2019-01-07] MEDS: Amiodarone 200mg tab ORAL SCH (08:28)
[2019-01-07] MEDS: Eliquis 2.5mg tablet ORAL SCH (08:28)
[2019-01-07] MEDS: Vitamin D 1000 IU Tab ORAL SCH (08:34)
[2019-01-07] MEDS: dilTIAZem HCl CD 120mg cap ORAL SCH (08:35)
[2019-01-07] MEDS: Sensipar 30mg Tab ORAL SCH (09:00)
[2019-01-07] MEDS: Montelukast 10mg tablet ORAL SCH (09:00)
[2019-01-07] MEDS: Tums 500mg ORAL SCH (09:00)
[2019-01-07 12:00] VITALS: BP 143/96
--- NOTE | 2019-01-07 12:20 | NUR ---
RD ASSESSMENT & RECOMMENDATIONS SEE CARE ACTIVITY FOR COMPLETE ASSESSMENT DAILY ESTIMATED NEEDS: Needs based on Morbidy obesity, CA, cardiac, pulmonary/62kg abw 22-27 kcals/kg 0335-7278 total kcals 1-1.5 g protein/kg 62-93 g total protein 20-22 mL/kg 3499-4089 total fluid mLs NUTRITION DIAGNOSIS: * Altered nutrition related lab values R/T CKD, cardiac dx as evidenced by elev creat (2.2), elev BNP (3080), elev cholesterol (219), elev LDL (123). * Morbid obesity R/T life style factors as evidenced by BMI > 50, pt is 256% IBW. CURRENT DIET:REGULAR PO DIET RECOMMENDATIONS: CARDIAC, CCHO LOW,/ texture as tolerated or per INDUSTRIAL SALES ENGINEER ADDITIONAL RECOMMENDATIONS: * Calibrated bedscale wt for accurate CBW * INDUSTRIAL SALES ENGINEER evaluation for appropriate texture -> Dtr reports pt sometimes coughs on thin liquids * Monitor PO tolerance * Consider lipid lowering agent : elev cholesterol + elev LDL
[2019-01-07] MEDS ORDERED: CEPHALEXIN500 MG ORAL (12:25)
--- NOTE | 2019-01-07 12:26 | Pulmonology Progress Note ---
Assessment/Plan Problems: (1) ACS (acute coronary syndrome) (2) Cellulitis (3) Atrial fibrillation (4) Malignant pleural effusion (5) Diabetes mellitus (6) Morbid obesity (7) SOURAV (obstructive sleep apnea) Assessment/Plan ID and renal evaluation appreciated Eliquis resumed on Vancomycin monitor hear rate. incentive spirometry continue abx, can be changed to po Keflex as recommended by ID dc home with oral Keflex. Subjective ROS Limited/Unobtainable: No Constitutional: Reports: no symptoms HEENT: Repors: no symptoms Respiratory: Reports: no symptoms Allergies: Coded Allergies: No Known Allergies (Unverified , 04/26/14) Objective Last 24 Hour Vital Signs Date Time Temp Pulse Resp B/P (MAP) Pulse Ox O2 Delivery O2 Flow Rate FiO2 01/07/19 09:00 Nasal Cannula 2.0 01/07/19 09:00 137/85 01/07/19 08:35 100 137/85 01/07/19 08:00 97.7 98 18 141/55 (83) 96 01/07/19 08:00 2.0 01/07/19 05:25 100 25 97 01/07/19 05:15 3.0 30 01/07/19 05:12 98.9 75 22 137/85 (102) 01/07/19 04:00 97.8 75 24 137/85 (102) 75 01/07/19 03:05 75 21 99 Full Face 30 01/07/19 01:05 60 32 98 Full Face 30 01/07/19 00:00 98.9 75 18 128/79 (95) 75 01/06/19 23:29 105 35 97 Full Face 30 01/06/19 23:28 100 22 Nasal Cannula 3.0 32 01/06/19 23:28 Nasal Cannula 3.0 32 01/06/19 22:25 2.0 30 01/06/19 21:00 Nasal Cannula 2.0 01/06/19 20:00 98.9 99 18 137/89 (105) 20 01/06/19 16:00 2.0 01/06/19 16:00 98.8 100 20 125/58 (80) 99 Intake and Output 01/06/19 01/07/19 19:00 07:00 Intake Total 480 ml Output Total 450 ml Balance 480 ml -450 ml Intake Oral 480 ml Output Urine Total 450 ml # Voids 4 General Appearance: WD/WN HEENT: normocephalic, atraumatic Respiratory/Chest: chest wall non-tender, lungs clear Cardiovascular: normal peripheral pulses, regular rhythm Abdomen: normal bowel sounds, no organomegaly Skin: rash Neurologic/Psychiatric: correction worker II-XII grossly normal Laboratory Tests 01/06/19 18:50: White Blood Count 13.7H, Red Blood Count 3.49L, Hemoglobin 10.2L, Hematocrit 32.3L, Mean Corpuscular Volume 93, Mean Corpuscular Hemoglobin 29.3, Mean Corpuscular Hemoglobin Concent 31.6L, Red Cell Distribution Width 17.2H, Platelet Count 129L, Mean Platelet Volume 9.1, Neutrophils (%) (Auto) 83.6H, Lymphocytes (%) (Auto) 7.4L, Monocytes (%) (Auto) 6.7, Eosinophils (%) (Auto) 0.9, Basophils (%) (Auto) 1.3 01/07/19 05:40: Sodium Level 141, Potassium Level 4.6, Chloride Level 104, Carbon Dioxide Level 28, Anion Gap 9, Blood Urea Nitrogen 52H, Creatinine 2.2H, Estimat Glomerular Filtration Rate , Glucose Level 99, Hemoglobin A1c 5.6, Uric Acid 4.7, Calcium Level 9.1, Phosphorus Level 4.0, Magnesium Level 1.8, Iron Level 27L, Total Iron Binding Capacity 149L, Percent Iron Saturation 18, Unsaturated Iron Binding 122, Ferritin 1285H, Total Bilirubin 0.2, Aspartate Amino Transf (AST/ SGOT) 17, Alanine Aminotransferase (ALT/SGPT) 12, Alkaline Phosphatase 54, Total Creatine Kinase 12L, C-Reactive Protein, Quantitative 16.0H, Pro-B-Type Natriuretic Peptide 3080H, Total Protein 6.8, Albumin 2.1L, Globulin 4.7, Albumin/Globulin Ratio 0.4L, Triglycerides Level 85, Cholesterol Level 219H, LDL Cholesterol 123H, HDL Cholesterol 77H, Cholesterol/HDL Ratio 2.8L, Vitamin B12 Level 534, Folate 15.7, Thyroid Stimulating Hormone (TSH) 3.384 Current Medications Medications (Trade) Dose Ordered Sig/Julio Cesar Route PRN Reason Start Time Stop Time Status Last Admin Dose Admin Acetaminophen (Tylenol) 650 mg Q4H PRN ORAL FEVER 01/05/19 18:00 02/02/19 17:59 Albuterol/ Ipratropium (Albuterol/ Ipratropium) 3 ml Q4H PRN HHN Shortness of Breath 01/05/19 18:00 01/08/19 17:59 Alprazolam (Xanax) 0.5 mg Q6H PRN ORAL For Anxiety 01/06/19 21:15 01/13/19 21:14 01/06/19 21:58 Amiodarone HCl (Cordarone) 200 mg EVERY 12 HOURS ORAL 01/05/19 21:00 02/02/19 20:59 01/07/19 08:28 Apixaban (Eliquis) 2.5 mg BID ORAL 01/05/19 18:00 02/04/19 17:59 01/07/19 08:28 Calcium Carbonate (Tums) 2,500 mg BID ORAL 01/05/19 18:00 02/04/19 08:59 01/05/19 17:50 Cefazolin Sodium 0.5 gm/Dextrose 55 ml @ 110 mls/hr Q12HR IV 01/06/19 21:00 01/13/19 20:59 01/07/19 08:27 Cinacalcet (Sensipar) 30 mg DAILY ORAL 01/06/19 09:00 02/03/19 08:59 Dextrose (Dextrose 50%) 25 ml Q30M PRN IV Hypoglycemia 01/05/19 21:15 02/04/19 21:14 Dextrose (Dextrose 50%) 50 ml Q30M PRN IV Hypoglycemia 01/05/19 21:15 02/04/19 21:14 Diltiazem HCl (Cardizem CD) 120 mg DAILY ORAL 01/06/19 09:00 02/04/19 08:59 01/07/19 08:35 Insulin Aspart (NovoLOG) BEFORE MEALS AND HS SUBQ 01/05/19 22:00 02/04/19 21:59 Irbesartan (Avapro) 75 mg DAILY ORAL 01/07/19 09:00 02/04/19 08:59 Loratadine (Claritin 10mg) 10 mg DAILY ORAL 01/06/19 09:00 02/04/19 08:59 01/07/19 08:28 Montelukast Sodium (Singulair) 10 mg DAILY ORAL 01/06/19 09:00 02/04/19 08:59 01/06/19 09:18 Morphine Sulfate (Morphine Sulfate) 2 mg Q4H PRN IVP severe Pain (Pain Scale 7-10) 01/05/19 18:00 01/10/19 17:59 Nitroglycerin (Ntg) 0.4 mg Q5M PRN SL Prn Chest Pain 01/05/19 15:30 02/02/19 17:59 Ondansetron HCl (Zofran) 4 mg Q6H PRN IVP Nausea & Vomiting 01/05/19 18:00 02/02/19 17:59 Pantoprazole (Protonix) 40 mg Q12HR ORAL 01/06/19 21:00 02/03/19 08:59 01/06/19 20:54 Patient Own Medication (Patient's Own Med) 1 ea BEDTIME ORAL 01/05/19 21:00 02/03/19 20:59 01/05/19 20:52 Patient Own Medication (Patient's Own Med) 1 ea DAILY ORAL 01/05/19 20:00 02/04/19 19:59 01/07/19 08:34 Polyethylene Glycol (Miralax) 17 gm DAILYPRN PRN ORAL Constipation 01/05/19 18:00 02/02/19 17:59 Temazepam (Restoril) 15 mg HSPRN PRN ORAL Insomnia 01/05/19 18:00 01/10/19 17:59 Vitamin D (Vitamin D) 4,000 intlu DAILY ORAL 01/06/19 09:00 02/04/19 08:59 01/07/19 08:34 Urvashi Carolina MD Jan 07, 2019 12:26
--- NOTE | 2019-01-07 13:42 | Nephrology Progress Note ---
Assessment/Plan Problem List: (1) Renal failure (ARF), acute on chronic (2) Morbid obesity (3) Diabetes mellitus (4) SOURAV (obstructive sleep apnea) (5) ACS (acute coronary syndrome) Assessment Acute Renal Failure Morbid Obesity DM HTN Stage 4 Lung Cancer, Malignant Pleural effusion ACS Atrial Fib SOURAV Plan Adjust BP meds discussed with Dr soliz Suggest check ABG ? retaining CO2 optimize pulmonary status avoid Nephrotoxics monitor renal parameters per orders Subjective ROS Limited/Unobtainable: No Constitutional: Reports: malaise, weakness Objective Objective Last 24 Hour Vital Signs Date Time Temp Pulse Resp B/P (MAP) Pulse Ox O2 Delivery O2 Flow Rate FiO2 01/07/19 12:00 2.0 01/07/19 12:00 99.1 111 20 143/96 (112) 100 01/07/19 09:00 Nasal Cannula 2.0 01/07/19 09:00 137/85 01/07/19 08:35 100 137/85 01/07/19 08:00 97.7 98 18 141/55 (83) 96 01/07/19 08:00 2.0 01/07/19 05:25 100 25 97 01/07/19 05:15 3.0 30 01/07/19 05:12 98.9 75 22 137/85 (102) 01/07/19 04:00 97.8 75 24 137/85 (102) 75 01/07/19 03:05 75 21 99 Full Face 30 01/07/19 01:05 60 32 98 Full Face 30 01/07/19 00:00 98.9 75 18 128/79 (95) 75 01/06/19 23:29 105 35 97 Full Face 30 01/06/19 23:28 100 22 Nasal Cannula 3.0 32 01/06/19 23:28 Nasal Cannula 3.0 32 01/06/19 22:25 2.0 30 01/06/19 21:00 Nasal Cannula 2.0 01/06/19 20:00 98.9 99 18 137/89 (105) 20 01/06/19 16:00 2.0 01/06/19 16:00 98.8 100 20 125/58 (80) 99 Intake and Output 01/06/19 01/07/19 19:00 07:00 Intake Total 480 ml Output Total 450 ml Balance 480 ml -450 ml Intake Oral 480 ml Output Urine Total 450 ml # Voids 4 Laboratory Tests 01/06/19 18:50: White Blood Count 13.7H, Red Blood Count 3.49L, Hemoglobin 10.2L, Hematocrit 32.3L, Mean Corpuscular Volume 93, Mean Corpuscular Hemoglobin 29.3, Mean Corpuscular Hemoglobin Concent 31.6L, Red Cell Distribution Width 17.2H, Platelet Count 129L, Mean Platelet Volume 9.1, Neutrophils (%) (Auto) 83.6H, Lymphocytes (%) (Auto) 7.4L, Monocytes (%) (Auto) 6.7, Eosinophils (%) (Auto) 0.9, Basophils (%) (Auto) 1.3 01/07/19 05:40: Sodium Level 141, Potassium Level 4.6, Chloride Level 104, Carbon Dioxide Level 28, Anion Gap 9, Blood Urea Nitrogen 52H, Creatinine 2.2H, Estimat Glomerular Filtration Rate , Glucose Level 99, Hemoglobin A1c 5.6, Uric Acid 4.7, Calcium Level 9.1, Phosphorus Level 4.0, Magnesium Level 1.8, Iron Level 27L, Total Iron Binding Capacity 149L, Percent Iron Saturation 18, Unsaturated Iron Binding 122, Ferritin 1285H, Total Bilirubin 0.2, Aspartate Amino Transf (AST/ SGOT) 17, Alanine Aminotransferase (ALT/SGPT) 12, Alkaline Phosphatase 54, Total Creatine Kinase 12L, C-Reactive Protein, Quantitative 16.0H, Pro-B-Type Natriuretic Peptide 3080H, Total Protein 6.8, Albumin 2.1L, Globulin 4.7, Albumin/Globulin Ratio 0.4L, Triglycerides Level 85, Cholesterol Level 219H, LDL Cholesterol 123H, HDL Cholesterol 77H, Cholesterol/HDL Ratio 2.8L, Vitamin B12 Level 534, Folate 15.7, Thyroid Stimulating Hormone (TSH) 3.384 Height (Feet): 5 Height (Inches): 5.00 Weight (Pounds): 260 General Appearance: lethargic Cardiovascular: tachycardia Respiratory/Chest: decreased breath sounds Abdomen: other - obese Jeb Tang MD Jan 07, 2019 13:42
[2019-01-07] MEDS ORDERED: D5 1/2NS 1000ml IV ONE (14:59)
--- NOTE | 2019-01-07 15:01 | NUR ---
NURSE NOTES: Patient discharged to home, accompanied by son and daughter. Patient ambulated via bariatric wheelchair owned by [facility]. Discharge packet reviewed and provided. Belongings confirmed. Patient observed to be in stable condition, with nasal cannula in place. Son brought portable oxygen machine from home. Patient transported in private vehicle owned by daughter. IV safely removed, covered with gauze and tape.
--- NOTE | 2019-01-07 19:14 | Cardiology Report ---
APPROVED REPORT EKG Measurement Heart [id number] Atrial fibrillation Low voltage QRS Possible Anterolateral infarct, age undetermined Abnormal ECG
--- NOTE | 2019-01-07 19:16 | Diagnostic Imaging Report ---
APPROVED REPORT CPT Code: 87987 Present Symptoms Comments: BILATERAL LEGS PAIN. BILATERAL: Imaging reveals a patent deep venous system bilaterally. There is no evidence of thrombus within the femoral, popliteal or tibial segments. The greater saphenous veins are also within normal limits. Doppler indicates normal spontaneous flow within these segments.
--- NOTE | 2019-01-09 09:52 | Discharge Summary ---
Discharge Summary Discharge Summary _ DATE OF ADMISSION: 01/03/2019 DATE OF DISCHARGE: 01/07/2019 DISCHARGED BY: Dr. Carolina REASON FOR ADMISSION: 73 years old female with past medical history of metastatic lung cancer, recurrent right-sided malignant pleural effusion, diabetes mellitus, obstructive sleep apnea, morbid obesity, presented to emergency department , complaining of shooting chest pain. Patient stated that pain was going on for the last 2-3 days. She has tried different pain medications without significant improvement. She denied injury/trauma to the chest. No falls. Upon evaluation in emergency department vital signs were stable. Laboratory workup revealed leukocytosis WBC 14.3 ,hemoglobin 11.3 ,hematocrit 35.6. BUN 35 , creatinine 1.6. Lactic acid 1.8. Stable LFT. Troponin negative. Pro BNP 2399 Albumin 2.1. KG revealed atrial fibrillation with controlled ventricular response. Chest x-ray demonstrated cardiomegaly with pulmonary interstitial edema and likely bilateral pleural effusion. Patient was admitted to telemetry floor for further management. CONSULTANTS: clinical law professor Dr. Metcalf ID specialist Dr. Flanagan cryptologic technician technical Dr. Tang [facility] COURSE: Patient admitted to telemetry floor. Patient was followed-up with serial troponin. Cardiology consult was requested. Patient started on heparin drip prophylaxis for atrial fibrillation. Serial troponin were negative. EKG revealed atrial fibrillation, no acute ischemic changes. Echocardiogram revealed preserved ejection fraction 55-60% with mild left ventricular hypertrophy. Small to medium sized pericardial effusion with no evidence of pericardial tamponade. Right ventricular systolic pressure of 22. Lipid panel revealed elevated total cholesterol 219 ,elevated LDL 123, HDL 77. Hemodynamic status was closely monitored. Blood pressure was managed with multiple regimen of antihypertensive. Venous duplex bilateral lower extremity was negative. Patient was unable to perform VQ scan at [facility] recently. But CTA of the chest may have high risk for contrast nephropathy. In light of pericardial effusion heparin drip was stopped , and patient was placed on Eliquis , that she was taking before. Heart rate was controlled with amiodarone and beta-francine. TSH was within normal limits. Per clinical law professor, patient had recurrent malignant right pleural effusion , that possibly may cause pleuritic chest pain , she was admitted with. Pleural effusion needs close surveillance for therapeutic drainage as needed. At this time chest x-ray revealed stable bilateral pleural effusion. MRI of brain in the [facility] on was within normal limits. Hemoglobin and hematocrit were closely monitored with goal to keep hemoglobin above 7. Iron supplement continued. Hemoglobin remained stable ,prior to discharge hemoglobin 10.2 ,hematocrit 32.3. Singulair was continued. Supplemental oxygen provided as needed to keep pulse oximetry above 90%. Pulmonary toilet provided as needed. Pain management was addressed . GI prophylaxis provided. Patient initially started on empiric antibiotics. Blood cultures were negative. Infectious disease specialist followed. Patient with evidence of bilateral leg cellulitis, left leg more than right , in the setting of chronic lymphedema. Leukocytosis was recurrent, but improving probably at least partially related to malignancy. No fevers. IV antibiotic switched to oral Keflex to complete the course at home. [employer] Development Specialist closely followed. Patient had evidence of acute renal failure. Renal parameters , electrolytes and volumes were closely monitor. Electrolytes corrected as needed. Sensipar continued. [employer] Development Specialist recommended to avoid nephrotoxic. Blood sugar was managed with sliding scale of insulin. Hemoglobin A1c at goal 5.6. Patient clinically stabilized and was ready for transfer home. FINAL DIAGNOSES: Bilateral leg cellulitis in the setting of chronic lymphedema ( left more than right ) Stage IV metastatic lung cancer Pleuritic chest pain: pericardial versus pleural related Recurrent right malignant pleural effusion Acute renal failure Diabetes mellitus type 2 Atrial fibrillation Morbid obesity Obstructive sleep apnea Chronic respiratory failure, home oxygen dependent Hypertensive heart disease Diastolic dysfunction Pleural effusion pericardial effusion COPD/asthma Hyperparathyroidism DISCHARGE MEDICATIONS: See Medication Reconciliation list. DISCHARGE INSTRUCTIONS: Patient was discharged home . Follow up with primary care provider in one week. I have been assigned to dictate discharge summary for this account. I was not involved in the patient's management. Pauly Gorman NP Jan 09, 2019 09:52
== END 2019-01-07 15:00 | disposition home or self-care (01) | DRG 204 ==
LOC: EDBD 13:33 → EMR 14:11 → 2E 14:36 → EDBEDREQ 16:43 → 2E 23:31 → 4E 01-05 15:23
DX: R07.81 Pleurodynia (principal); I50.33 Acute on chronic diastolic (congestive) heart failure; C34.90 Malignant neoplasm of unspecified part of unspecified bronchus or lung; J91.0 Malignant pleural effusion; N17.9 Acute kidney failure, unspecified; I13.0 Hypertensive heart and chronic kidney disease with heart failure and stage 1 through stage 4 chronic kidney disease, or unspecified chronic kidney disease; C79.51 Secondary malignant neoplasm of bone; C79.31 Secondary malignant neoplasm of brain; J96.10 Chronic respiratory failure, unspecified whether with hypoxia or hypercapnia; I31.3 Pericardial effusion (noninflammatory); L03.116 Cellulitis of left lower limb; L03.115 Cellulitis of right lower limb; Z68.43 Body mass index [BMI] 50.0-59.9, adult; I48.91 Unspecified atrial fibrillation; E11.9 Type 2 diabetes mellitus without complications; E66.01 Morbid (severe) obesity due to excess calories; G47.33 Obstructive sleep apnea (adult) (pediatric); N18.9 Chronic kidney disease, unspecified; E11.22 Type 2 diabetes mellitus with diabetic chronic kidney disease; I89.0 Lymphedema, not elsewhere classified; R00.1 Bradycardia, unspecified; J44.9 Chronic obstructive pulmonary disease, unspecified; E21.3 Hyperparathyroidism, unspecified; Z87.891 Personal history of nicotine dependence; Z99.81 Dependence on supplemental oxygen
CPT/HCPCS: 36415; 71045; 80048; 80053; 80061; 80202; 82550; 82553; 82607; 82728; 82746; 82962; 83036; 83540; 83550; 83605; 83690; 83735; 83880; 84100; 84443; 84466; 84484; 84550; 85025; 85610; 85651; 85730; 86140; 87040; 87081; 93005; 93306; 93970; 94660; 94664; 94760; 96374; 96376; 99284; J1815